=== PATIENT | female | born 1960 | race Caucasian/White ===

== ENCOUNTER → 2017-01-16 | Outpatient (CLI) | payer BC ==
[~2017-01-16] MED LIST: ACID1TAB PO; ASP81TEC PO; BUPROPION; DCCL10CRX; HYDR1TAB75 PO; HYDROCODONE; LOTREL; MTH750T; NIFEDIPINE PO; PHEN16.223 PO; ZEGERID; [UNRECOGNIZED DRUG - OTHER] PO
--- NOTE | 2017-01-16 18:41 | Diagnostic Imaging Report ---
EXAMINATION: Screening mammogram. COMPARISON: 12/21/2015. Digital screening mammography was obtained with CAD and three-dimensional tomosynthesis. FINDINGS: Scattered fibroglandular densities are present. There is no mass or suspicious calcification. IMPRESSION: Stable screening mammogram. No malignancy. ACR BI-RADS Category 1: Negative. Result letter will be mailed to the patient. Note: At least 10% of breast cancer is not imaged by mammography. Dictated on workstation # [id number]
== END ==
LOC: RAD 09:51
PROVIDERS: ATTEND Family Medicine
DX: Z12.31 Encounter for screening mammogram for malignant neoplasm of breast (principal)
CPT/HCPCS: 77067

== ENCOUNTER → 2018-12-25 | Outpatient (CLI) | payer BC ==
--- NOTE | 2018-12-25 12:02 | Diagnostic Imaging Report ---
PROCEDURE: US Thyroid. TECHNIQUE: Multiple real-time grayscale images were obtained of the thyroid in various projections. INDICATION: Thyroid nodules. FINDINGS: Comparison is 05/23/2014. The right lobe of the thyroid measures 4.0 x 2.2 x 1.6 cm. It is normal in size and echogenicity. There is a 5 mm cyst in the right lobe of the thyroid. There is a 5 x 6 mm isoechoic solid nodule with well-defined margins and no internal calcifications in the right lobe of the thyroid. The assessment is TIRADS 3. The left lobe of the thyroid measures 4.2 x 2.1 x 1.4 cm. A few cysts are seen on the left. No solid lesions are present. The isthmus is normal measuring 2 mm. IMPRESSION: 1. TIRADS 3 nodule on the right, recommend followup. TIRADS categories: TIRADS 1: Benign No FNA TIRADS 2: Not Suspicious No FNA TIRADS 3: Mildly Suspicious FNA if > 2.5 cm Follow if > 1.5 cm (At 1, 3 and 5 years from initial scan) TIRADS 4: Moderately Suspicious FNA if > 1.5 cm Follow if > 1 cm (At 1, 2, 3 and 5 years from initial scan) TIRADS 5: Highly Suspicious FNA if > 1 cm Follow if > 0.5 cm (Annually for 5 years from initial scan) Dictated by: Dictated on workstation # [id number]
== END ==
LOC: RAD 09:48
PROVIDERS: ATTEND Nurse Practitioner Family
DX: E04.2 Nontoxic multinodular goiter (principal); E05.90 Thyrotoxicosis, unspecified without thyrotoxic crisis or storm
CPT/HCPCS: 76536

== ENCOUNTER → 2019-01-23 | Outpatient (CLI) | payer BC ==
--- NOTE | 2019-01-25 07:51 | Diagnostic Imaging Report ---
Digital mammogram Bilateral screening with 3-D tomosynthesis and CAD The study was compared to the prior exams of 01/22/2018 and 12/21/2015. At this time there are no current complaints. The current study was also evaluated with a Computer Aided Detection (CAD) system. FINDINGS: There are scattered fibroglandular densities in both breasts which could obscure a lesion. Overall, there does not appear to have been any significant change when compared to the prior exam. No primary or secondary sign of malignancy is noted. IMPRESSION: There is no radiographic evidence for malignancy. ACR BI-RADS Category 1: Negative. Result letter will be mailed to the patient. Note: At least 10% of breast cancer is not imaged by mammography. Dictated by: Dictated on workstation # [id number]
== END ==
LOC: RAD 09:35
PROVIDERS: ATTEND Family Medicine
DX: Z12.31 Encounter for screening mammogram for malignant neoplasm of breast (principal)
CPT/HCPCS: 77067

== ENCOUNTER 2019-05-25 11:05 | Inpatient (IN) | payer BC ==
[2019-05-25] VITALS (9 sets, daily range): BP systolic 86–109; BP diastolic 25–67
[~2019-05-25] VITALS: Ht 160 cm; Wt 49.5 kg
[2019-05-25] MEDS ORDERED: D5 NS 1000 ML IV SOLUTION 1,000 ML IV ONE (11:20)
[2019-05-25] MEDS ORDERED: NS IV 1000 ML 1,000 ML IV SCH ×2 (11:25→14:17)
[2019-05-25] MEDS ORDERED: CEFEPIME INJECTION 1,000 MG in WATER (STERILE) FOR INJECTION 10 ML IV ONE (11:30)
[2019-05-25] MEDS ORDERED: metroNIDAZOLE 500MG/100ML IVPB 100 ML IV ONE (11:30)
[2019-05-25] MEDS ORDERED: ONDANSETRON 4 MG/2 ML (SDV) Z0FRAN IV PRN ×2 (11:30→15:45)
[2019-05-25] MEDS ORDERED: DEXTROSE 50% 50 ML (IMS) SYR IV ONE (11:30)
--- NOTE | 2019-05-25 11:36 | ED GI ---
General Chief Complaint: General Problems/Pain Stated Complaint: VOMITING / DIARRHEA Nursing Triage Note: AMB TO ED PER EMS HAS BEEN SICK SINCE MONDAY WITH DIARRHEA ON ADMIT LETHARGIC ON ADMIT Sepsis Screen: No Definite Risk Source of Information: Patient, Spouse Exam Limitations: No Limitations History of Present Illness Date Seen by Provider: May 25, 2019 Time Seen by Provider: 11:14 Initial Comments Patient presents ER by EMS from home with spouse and chief complaint for 2 days she's had diarrhea, and dehydration. She has diabetes. She was very weak and had a fall yesterday striking her left arm but she says it does not hurt her anymore. She did not strike her head nor lose consciousness. She had an occasional cough but no fevers or chills. No dysuria. She's had her gallbladder out, and tubal ligation. Allergies and Home Medications Allergies Coded Allergies: No Known Drug Allergies (Verified , 04/05/07) Home Medications Acidophilus/Bulgaricus 1 Tab.chew Tab.chew, 1 TAB.CHEW PO BID, (Reported) Aspirin 81 Mg Tabec, 81 MG PO DAILY, (Reported) Hydrocodone Bit/Acetaminophen 1 Each Tablet, 1 EACH PO Q4HR PRN, (Reported) Phenobarb/Hyoscy/Atropine/Scop 16.2 Mg Tablet, 2 TAB PO BID, (Reported) [Methacarbamal] , 1,500 MG PO BID, (Reported) [Nifedipine] , 60 MG PO DAILY, (Reported) Patient Home Medication List Home Medication List Reviewed: Yes Review of Systems Review of Systems Constitutional: No chills, No diaphoresis; malaise, weakness EENTM: No Blurred Vision, No Double Vision Respiratory: Denies Cough, Denies Shortness of Air Cardiovascular: Denies Chest Pain, Denies Lightheadedness Gastrointestinal: See HPI; Denies Abdomen Distended, Denies Abdominal Pain, Denies Constipated; Diarrhea; Denies Nausea; Poor Appetite, Poor Fluid Intake; Denies Vomiting Genitourinary: Denies Burning, Denies Discharge Musculoskeletal: No back pain, No joint pain Skin: No pruritus, No rash Psychiatric/Neurological: Denies Headache, Denies Numbness All Other Systems Reviewed Negative Unless Noted: Yes Past Darzedc-Mxhmis-Wpxori Hx Patient Social History Alcohol Use: Denies Use Recreational Drug Use: No Smoking Status: Never a Smoker Recent Foreign Travel: No Contact w/Someone Who Travel: No Recent Infectious Disease Expo: No Past Medical History Reproductive Disorders: Yes (6.2 LB.MASS ON RIGHT OVARY-HYSTERECTOMY) Physical Exam Vital Signs Vital Signs - First Documented 05/25/19 11:11 Temp 35.2 Pulse 87 Resp 16 B/P (MAP) 134/79 (97) Pulse Ox 0 Capillary Refill : Less Than 3 Seconds Height/Weight/BMI Height: '" Weight: lbs. oz. kg; 19.00 BMI Method: General Appearance: moderate distress, thin HEENT: PERRL/EOMI, normal ENT inspection, TMs normal; No pharynx normal (oropharynx is very dry) Neck: full range of motion, supple, normal inspection Respiratory: lungs clear, normal breath sounds, no respiratory distress, no accessory muscle use Cardiovascular: normal peripheral pulses, regular rate, rhythm, no edema Peripheral Pulses: 2+ Radial Pulses (R), 2+ Radial Pulses (L) Gastrointestinal: normal bowel sounds (active), non tender, soft, no organomegaly Neurologic/Psychiatric: alert, normal mood/affect, oriented x 3, other (GCS 14) Skin: normal color, warm/dry Focused Exam Lactate Level 05/25/19 12:06: Lactic Acid Level 5.81*H Lactic Acid Level Laboratory Tests Test 05/25/19 12:06 Lactic Acid Level 5.81 MMOL/L (0.50-2.00) *H Procedures/Interventions Lumen: triple Central Line Procedure: betadine prep (and chlorhexidine), sterile drapes applied, sterile dressing applied Position: internal jugular (R) Anesthesia: Lidocaine Volume Anesthetic (ccs): 3 Complications: none Post Position: sutured, good blood return, position confirmed w/ CXR Patient was positioned in Trendelenburg. Risks, benefits and alternatives were discussed. Patient and acknowledged and accepted and signed consent. We had a good plump IJ when she isn't Trendelenburg on the right side so we draped her out in the usual fashion. Infiltrated lidocaine and then put the introducer needle into the right IJ on first attempt. The guidewire was easily passed on first attempt. Nabeel in the skin was made and the needle was removed. Dilator was introduced and removed. We then flushed and placed the triple lumen catheter w hich easily withdrew and flushed. We put it at about 12 cm. We stitched in place and there was a bio gel on the dressing which was then placed all using the usual sterile fashion. Progress/Results/Core Measures Results/Orders Lab Results Laboratory Tests Test 05/25/19 11:12 05/25/19 12:06 05/25/19 12:42 05/25/19 13:33 Range/Units Glucometer 45 *L 46 *L 70-110 MG/DL White Blood Count 3.2 L 4.3-11.0 10^3/uL Red Blood Count 4.59 4.35-5.85 10^6/uL Hemoglobin 14.3 11.5-16.0 G/DL Hematocrit 42 35-52 % Mean Corpuscular Volume 91 80-99 FL Mean Corpuscular Hemoglobin 31 25-34 PG Mean Corpuscular Hemoglobin Concent 34 32-36 G/DL Red Cell Distribution Width 13.0 10.0-14.5 % Platelet Count 208 130-400 10^3/uL Mean Platelet Volume 10.0 7.4-10.4 FL Neutrophils (%) (Auto) 84 H 42-75 % Lymphocytes (%) (Auto) 6 L 12-44 % Monocytes (%) (Auto) 3 0-12 % Eosinophils (%) (Auto) 7 0-10 % Basophils (%) (Auto) 1 0-10 % Neutrophils # (Auto) 2.7 1.8-7.8 X 10^3 Lymphocytes # (Auto) 0.2 L 1.0-4.0 X 10^3 Monocytes # (Auto) 0.1 0.0-1.0 X 10^3 Eosinophils # (Auto) 0.2 0.0-0.3 10^3/uL Basophils # (Auto) 0.0 0.0-0.1 10^3/uL Neutrophils % (Manual) 53 % Lymphocytes % (Manual) 8 % Monocytes % (Manual) 31 % Eosinophils % (Manual) 1 % Band Neutrophils 7 % Blood Morphology Comment NORMAL Lactic Acid Level 5.81 *H 0.50-2.00 MMOL/L Prothrombin Time 15.2 H 12.2-14.7 SEC INR Comment 1.2 0.8-1.4 Activated Partial Thromboplast Time 33 24-35 SEC Sodium Level 136 135-145 MMOL/L Potassium Level 3.7 3.6-5.0 MMOL/L Chloride Level 100 98-107 MMOL/L Carbon Dioxide Level 18 L 21-32 MMOL/L Anion Gap 18 H 5-14 MMOL/L Blood Urea Nitrogen 60 H 7-18 MG/DL Creatinine 2.74 H 0.60-1.30 MG/DL Estimat Glomerular Filtration Rate 18 BUN/Creatinine Ratio 22 Glucose Level 92 70-105 MG/DL Calcium Level 7.6 L 8.5-10.1 MG/DL Corrected Calcium 8.6 8.5-10.1 MG/DL Total Bilirubin 0.5 0.1-1.0 MG/DL Aspartate Amino Transf (AST/SGOT) 56 H 5-34 U/L Alanine Aminotransferase (ALT/SGPT) 33 0-55 U/L Alkaline Phosphatase 47 40-136 U/L Total Protein 5.2 L 6.4-8.2 GM/DL Albumin 2.7 L 3.2-4.5 GM/DL My Orders Orders - GILDA ALEXIS D50w (Emergency) Syringe (Dextrose 50% 5 (05/25/19 11:30) Accucheck Stat ONCE (05/25/19 11:19) Ed Iv/Invasive Line Start (05/25/19 11:20) D5 Ns 1000 Ml Iv Solution (Dextrose 5%/0 (05/25/19 11:20) Cbc With Automated Diff (05/25/19 11:25) Comprehensive Metabolic Panel (05/25/19 11:25) Blood Culture (05/25/19 11:25) Sputum Culture (05/25/19 11:25) Urinalysis (05/25/19 11:25) Urine Culture (05/25/19 11:25) Protime With Inr (05/25/19 11:25) Partial Thromboplastin Time (05/25/19 11:25) Chest 1 View, Ap/Pa Only (05/25/19 11:25) Ed Iv/Invasive Line Start (05/25/19 11:25) Ed Iv/Invasive Line Start (05/25/19 11:25) Vital Signs Adult Sepsis Patie Q15M (05/25/19 11:25) Ondansetron Injection (Zofran Injectio (05/25/19 11:30) O2 (05/25/19 11:25) Remove Rings In Anticipation O (05/25/19 11:25) Lactic Acid Analyzer (05/25/19 11:25) Ns Iv 1000 Ml (Sodium Chloride 0.9%) (05/25/19 11:25) Metronidazole 500mg/100ml Ivpb (Flagyl 5 (05/25/19 11:30) Cefepime Injection (Maxipime Injection) (05/25/19 11:30) Ed Iv/Invasive Line Start (05/25/19 11:25) Ed Iv/Invasive Line Start (05/25/19 12:02) Ns Iv 500 Ml (Sodium Chloride 0.9%) (05/25/19 12:02) Manual Differential (05/25/19 12:06) Chest 1 View, Ap/Pa Only (05/25/19 12:35) Loperamide Tablet (Imodium Tablet) (05/25/19 12:45) Norepinephrine (Levophed) (05/25/19 13:15) Influenza A And B Antigens (05/25/19 13:41) Accucheck Stat ONCE (05/25/19 13:48) Medications Given in ED Current Medications Medications Dose Ordered Sig/Lidia Route Start Time Stop Time Status Last Admin Dose Admin Cefepime HCl 1000 mg/Sterile Water 10 ml @ 200 mls/hr ONCE ONCE IV 05/25/19 11:30 05/25/19 11:32 DC 05/25/19 12:59 200 MLS/HR Dextrose/Sodium Chloride 1,000 ml @ 100 mls/hr Q10H ONCE IV 05/25/19 11:20 05/25/19 21:19 05/25/19 11:23 100 MLS/HR Loperamide HCl 4 mg ONCE ONCE PO 05/25/19 12:45 05/25/19 12:46 DC 05/25/19 12:55 4 MG Metronidazole 100 ml @ 100 mls/hr ONCE ONCE IV 05/25/19 11:30 05/25/19 12:29 DC 05/25/19 12:59 100 MLS/HR Ondansetron HCl 4 mg PRN PRN IV 05/25/19 11:30 05/25/19 12:59 DC 05/25/19 12:53 4 MG Sodium Chloride 500 ml @ 0 mls/hr Q0M ONCE IV 05/25/19 12:02 05/25/19 12:04 DC 05/25/19 12:57 500 MLS/HR Vital Signs/I&O 05/25/19 11:11 Temp 35.2 Pulse 87 Resp 16 B/P (MAP) 134/79 (97) Pulse Ox 0 Blood Pressure Mean: 97 Progress Progress Note : Time: 11:35 Progress Note Blood sugars in the 40s so we started a D5 at 100 cc an hour throughout 24-gauge in her right forearm. She has very poor vascular access. We'll attempt to get an EJ in her neck. Diagnostic Imaging Plain Films/CT/US/NM/MRI: chest (1v) Comments [facility]. [place], [place] NAME: TAMANNA PLATT [facility] REC#: [id number] PT STATUS: REG ER : 1960 PHYSICIAN: GILDA ALEXIS MD ADMIT DATE: 05/25/19/ER Draft Date of Exam:05/25/19 CHEST 1 VIEW, AP/PA ONLY INDICATION: Shortness of breath. TIME OF EXAM: 12:04 PM Correlation is made with prior chest 07/07/2011. FINDINGS: Heart is mildly enlarged. There are infiltrates bilateral upper lobes as well as bilateral lower lobes, greatest in the right lower lobe. Features are most suggestive of pneumonia. No effusion or pneumothorax is seen. IMPRESSION: Bilateral pulmonary infiltrates suggestive of pneumonia. Dictated on workstation # [id number] Dict: 05/25/19 1208 Trans: 05/25/19 1211 [id number] Interpreted by: JULIANA CAMERON MD Electronically signed by: Reviewed: Reviewed by Me Diagonstic Imaging: Xray Plain Films/CT/US/NM/MRI: chest (v) Comments New interval central catheter not crossing the midline terminating at the level of the right atria in the superior vena cava. No pneumothorax or other new acute processes. NAME: TAMANNA PLATT MED REC#: [id number] PT STATUS: REG ER : 1960 PHYSICIAN: GILDA ALEXIS MD ADMIT DATE: 05/25/19/ER Draft Date of Exam:05/25/19 CHEST 1 VIEW, AP/PA ONLY INDICATION: Central line placement. TIME OF EXAM: 12:50 PM Correlation is made with chest radiograph earlier same day. FINDINGS: Right IJ line has tip overlying the SVC. There is no pneumothorax. Bilateral pulmonary infiltrates are again noted. There is no effusion. IMPRESSION: Satisfactory central line placement. No pneumothorax is detected. Dictated on workstation # [id number] Dict: 05/25/19 1255 Trans: 05/25/19 1257 [id number] Interpreted by: JULIANA CAMERON MD Electronically signed by: Reviewed: Reviewed by Me Departure Communication (Admissions) Time/Spoke to Admitting Phy: 13:[address] Mckay and he agrees to admit the patient to the ICU. He agrees with antibiotics fluids and Levophed. Impression Primary Impression: Septic shock Additional Impressions: Pneumonia Qualified Codes: J18.9 - Pneumonia, unspecified organism Gastroenteritis and colitis, viral Hypoglycemia associated with type 2 diabetes mellitus Disposition: ADMITTED INPATIENT Condition: Critical Admissions Decision to Admit Reason: Admit from ER (General) Decision to Admit/Date: May 25, 2019 Time/Decision to Admit Time: 12:00 Departure-Patient Inst. Referrals: PIETRO TURK DO (PCP/Family) Primary Care Physician GILDA ALEXIS May 25, 2019 11:36
[2019-05-25] MEDS ORDERED: NS IV 500 ML 500 ML IV ONE (12:02)
--- NOTE | 2019-05-25 12:11 | Diagnostic Imaging Report ---
INDICATION: Shortness of breath. TIME OF EXAM: 12:04 PM Correlation is made with prior chest 07/07/2011. FINDINGS: Heart is mildly enlarged. There are infiltrates bilateral upper lobes as well as bilateral lower lobes, greatest in the right lower lobe. Features are most suggestive of pneumonia. No effusion or pneumothorax is seen. IMPRESSION: Bilateral pulmonary infiltrates suggestive of pneumonia. Dictated by: Dictated on workstation # [id number]
[2019-05-25 12:19] LABS: BASOPHILS % (AUTO) 1 % (0-10); EOSINOPHILS # (AUTO) 0.2 10^3/uL (0.0-0.3); EOSINOPHILS % (AUTO) 7 % (0-10); HEMATOCRIT 42 % (35-52); HEMOGLOBIN 14.3 G/DL (11.5-16.0); LYMPHOCYTES # (AUTO) 0.2 X 10^3 (1.0-4.0); LYMPHOCYTES % (AUTO) 6 % (12-44); MEAN CORPUSCULAR HEMOGLOBIN 31 PG (25-34); MEAN CORPUSCULAR HGB CONC 34 G/DL (32-36); MEAN CORPUSCULAR VOLUME 91 FL (80-99); MONOCYTES # (AUTO) 0.1 X 10^3 (0.0-1.0); MONOCYTES % (AUTO) 3 % (0-12); NEUTROPHILS # (AUTO) 2.7 X 10^3 (1.8-7.8); NEUTROPHILS % (AUTO) 84 % (42-75); PLATELET COUNT 208 10^3/uL (130-400); WHITE BLOOD COUNT 3.2 10^3/uL (4.3-11.0)
[2019-05-25] MEDS ORDERED: LOPERAMIDE 2 MG (IMODIUM) TABLET PO ONE (12:45)
--- NOTE | 2019-05-25 12:58 | Diagnostic Imaging Report ---
INDICATION: Central line placement. TIME OF EXAM: 12:50 PM Correlation is made with chest radiograph earlier same day. FINDINGS: Right IJ line has tip overlying the SVC. There is no pneumothorax. Bilateral pulmonary infiltrates are again noted. There is no effusion. IMPRESSION: Satisfactory central line placement. No pneumothorax is detected. Dictated by: Dictated on workstation # [id number]
[2019-05-25 13:09] LABS: ALBUMIN 2.7 GM/DL (3.2-4.5); BILIRUBIN,TOTAL 0.5 MG/DL (0.1-1.0); CALCIUM 7.6 MG/DL (8.5-10.1); CREATININE SERUM 2.74 MG/DL (0.60-1.30); POTASSIUM 3.7 MMOL/L (3.6-5.0); TOTAL PROTEIN 5.2 GM/DL (6.4-8.2)
[2019-05-25 13:11] LABS: INR 1.2 (0.8-1.4); PROTHROMBIN TIME PATIENT 15.2 SEC (12.2-14.7)
[2019-05-25] MEDS ORDERED: NOREPINEPHRINE 4 MG in NS (IVPB) 250 ML IV SCH (13:15)
[2019-05-25 13:29] LABS: BAND NEUTROPHILS 7 %; EOSINOPHILS % (MANUAL) 1 %; LYMPHOCYTES % (MANUAL) 8 %; MONOCYTES % (MANUAL) 31 %; NEUTROPHILS % (MANUAL) 53 %; RBC MORPH NORMAL
[2019-05-25] MEDS ORDERED: VANCOMYCIN INJECTION 0.1 MG in NS (IVPB) 250 ML IV SCH (14:00)
[2019-05-25] MEDS ORDERED: VANCOMYCIN 1 GM/NS 250 ML IVPB IV NR ×2 (14:08)
[2019-05-25] MEDS ORDERED: AZITHROMYCIN INJECTION 500 MG in NS (IVPB) 250 ML IV SCH (14:45)
[2019-05-25] MEDS ORDERED: cefTRIAXone FOR IV USE 1,000 MG in WATER (STERILE) FOR INJECTION 10 ML IV SCH (14:45)
--- NOTE | 2019-05-25 15:03 | History & Physical-Hospitalist ---
History of Present Illness HPI/Chief Complaint this is a 59-year-old white female who began becoming ill with an upper respiratory tract infection on 05 14 2019. At that time she had a cough and a fever up to 103. she never really got over that and has progressed with increased weakness shortness of breath and cough. In addition she had developed some diarrhea and some nausea. The patient presents in septic shock with bilateral pulmonary infiltrates consistent with pneumonia and acute renal failure. Source: patient Exam Limitations: no limitations Date Seen 05/25/19 Time Seen by a Provider: 14:30 Attending Physician Dayami Lowe DO Referring Physician Date of Admission May 25, 2019 at 14:00 Home Medications & Allergies Home Medications Reviewed patient Home Medication Reconciliation performed by pharmacy medication reconciliations research technician and/or nursing. Patients Allergies have been reviewed. Allergies Allergies Coded Allergies No Known Drug Allergies (Qyoyvleb90/8/07) Past Oojopzq-Utmdwc-Lvuwzh Hx Past Med/Social Hx: Reviewed Nursing Past Med/Soc Hx Patient Social History Marrital Status: Employed/Student: retired Alcohol Use: Denies Use Recreational Drug Use: No Smoking Status: Current Everyday Smoker Recent Foreign Travel: No Contact w/other who traveled: No Recent Hopitalizations: Yes Recent Infectious Disease Expo: No Past Medical History Surgeries: Gallbladder, Hysterectomy, Oophorectomy Reproductive: Yes (6.2 LB.MASS ON RIGHT OVARY-HYSTERECTOMY) Sexually Transmitted Disease: No Endocrine: Hypothyroidsim, Diabetes, Non-Insulin dep History of Blood Disorders: No Review of Systems Constitutional: see HPI Respiratory: cough, dyspnea on exertion Cardiovascular: no symptoms reported Gastrointestinal: diarrhea, nausea Genitourinary: no symptoms reported Musculoskeletal: no symptoms reported Skin: no symptoms reported, other (Celine) Psychiatric/Neurological: No Symptoms Reported Physical Exam Physical Exam Vital Signs Vital Signs - First Documented 05/25/19 05/25/19 11:11 14:44 Temp 35.2 Pulse 87 Resp 16 B/P (MAP) 134/79 (97) Pulse Ox 0 O2 Delivery Nasal Cannula O2 Flow Rate 2.00 Capillary Refill : Less Than 3 Seconds Height, Weight, BMI Height: '" Weight: lbs. oz. kg; 19.00 BMI Method: General Appearance: Mild Distress, Thin HEENT: TMs Normal, Normal ENT Inspection, Other (oral mucosa extremely dry) Neck: Full Range of Motion, Normal Inspection, Non Tender, Supple Respiratory: No Accessory Muscle Use, No Respiratory Distress, Crackles, Rales Cardiovascular: Regular Rate, Rhythm, No Gallop, No Murmur, Normal Peripheral Pulses Gastrointestinal: Normal Bowel Sounds, No Organomegaly, No Pulsatile Mass, Non Tender, Soft Extremity: No Calf Tenderness, Slow Capillary Refill Neurologic/Psychiatric: Alert, Oriented x3, No Motor/Sensory Deficits, Normal Mood/Affect Skin: Warm/Dry Results Results/Procedures Labs Laboratory Tests 05/25/19 12:06 05/25/19 12:42 05/25/19 18:55 Patient resulted labs reviewed. Assessment/Plan Admission Diagnosis septic shock Community acquired pneumonia Acute renal failure secondary to dehydration and 1 Respiratory insufficiency secondary to pneumonia Tobaccoism gastroenteritis of uncertain etiology persistant hypoglycemia Plan to admit to the ICU with aggressive fluid hydration, pressors as needed, patient has already received vancomycin and Flagyl and meropenem, will add zithromax-prognosis is guarded Admission Status: Inpatient Order (span 2 midnights) Reason for Inpatient Admission: patient is critically ill with multiple comorbidities Diagnosis/Problems Diagnosis/Problems (1) Septic shock Status: Acute (2) Pneumonia Status: Acute Qualifiers: Pneumonia type: due to unspecified organism Laterality: bilateral Lung location: unspecified part of lung Qualified Codes: J18.9 - Pneumonia, unspecified organism (3) Gastroenteritis and colitis, viral Status: Acute (4) Hypoglycemia associated with type 2 diabetes mellitus Status: Acute Copy Copies To 1: DAYAMI TURK KATHLEEN M MD May 25, 2019 15:03
[2019-05-25 15:07] LABS: BILIRUBIN,URINE NEGATIVE (NEGATIVE); CLARITY,URINE CLOUDY; COLOR,URINE ORANGE; GLUCOSE, URINE (UA) NEGATIVE (NEGATIVE); KETONES,URINE NEGATIVE (NEGATIVE); LEUKOCYTE ESTERASE ,URINE NEGATIVE (NEGATIVE); NITRITE,URINE NEGATIVE (NEGATIVE); PROTEIN,URINE 1+ (NEGATIVE)
[2019-05-25 15:21] LABS: BACTERIA,URINE MODERATE /HPF; RBC,URINE 0-2 /HPF
[2019-05-25] MEDS ORDERED: fentaNYL INJECTION 100 MCG/2 ML AMP IV PRN (15:45)
[2019-05-25] MEDS ORDERED: ACETAMINOPHEN 500 MG TAB (TYLENOL) PO PRN (15:45)
[2019-05-25] MEDS ORDERED: PROMETHAZINE INJ 25 MG/ML (PHENERGAN) AMP IV PRN (15:45)
[2019-05-25] MEDS ORDERED: inSUlin ASPART (NovoLOG) 1 UNIT/0.01 ML (CHARGE PER UNIT) SC SCH (16:00)
[2019-05-25] MEDS: NS IV 1000 ML 1,000 ML IV SCH ×3 (16:32→20:01)
[2019-05-25] MEDS ORDERED: ENOXAPARIN 40 MG/0.4 ML (LOVENOX) SYR SC SCH ×2 (18:45→21:00)
--- NOTE | 2019-05-25 18:45 | Diagnostic Imaging Report ---
INDICATION: Hypoxia COMPARISON: 05/25/2019 at 12:50 PM FINDINGS: Single view of the chest demonstrates slightly increased infiltrate in the left base. Otherwise, additional bilateral infiltrates are stable. There is no pneumothorax. Trace effusion is seen in the right costophrenic angle. The heart is stable in size. Right IJ catheter is in good position. IMPRESSION: Increasing infiltrate left base, otherwise no change identified. Dictated by: Dictated on workstation # [id number]
[2019-05-25 19:00] LABS: ABG BASE EXCESS -9.9 MMOL/L (-2.5-2.5); ABG OXYGEN SATURATION 71 % (94-100); ABG PCO2 45 MMHG (35-45); ABG PO2 48 MMHG (79-93); ABG TCO2 18.2 MMOL/L (21.0-31.0)
[2019-05-25 19:03] LABS: ABG PH 7.19 (7.37-7.43)
[2019-05-25 19:04] LABS: INSPIRED O2 6 L; PATIENT TEMP 36.7; VENTILATOR NO
[2019-05-25] MEDS ORDERED: ENOXAPARIN 30 MG/0.3 ML (LOVENOX) SYR ONE (19:06)
[2019-05-25 19:07] LABS: BASOPHILS % (AUTO) 1 % (0-10); EOSINOPHILS # (AUTO) 0.1 10^3/uL (0.0-0.3); EOSINOPHILS % (AUTO) 3 % (0-10); HEMATOCRIT 34 % (35-52); HEMOGLOBIN 11.8 G/DL (11.5-16.0); LYMPHOCYTES # (AUTO) 0.2 X 10^3 (1.0-4.0); LYMPHOCYTES % (AUTO) 4 % (12-44); MEAN CORPUSCULAR HEMOGLOBIN 31 PG (25-34); MEAN CORPUSCULAR HGB CONC 35 G/DL (32-36); MEAN CORPUSCULAR VOLUME 91 FL (80-99); MEAN PLATELET VOLUME 9.5 FL (7.4-10.4); MONOCYTES % (AUTO) 1 % (0-12); NEUTROPHILS # (AUTO) 3.5 X 10^3 (1.8-7.8); NEUTROPHILS % (AUTO) 91 % (42-75); PLATELET COUNT 246 10^3/uL (130-400); RED CELL DISTRIBUTION WIDTH 13.1 % (10.0-14.5); WHITE BLOOD COUNT 3.9 10^3/uL (4.3-11.0)
[2019-05-25 19:25] LABS: CREATININE SERUM 2.15 MG/DL (0.60-1.30); PHOSPHORUS 5.4 MG/DL (2.3-4.7)
--- NOTE | 2019-05-25 19:26 | Discharge Summary ---
Discharge Summary Hospital Course Was the Problem List Reviewed?: Yes Problems/Dx: (1) Respiratory failure requiring intubation Status: Acute (2) Septic shock Status: Acute (3) Pneumonia Status: Acute Qualifiers: Qualified Codes: J18.9 - Pneumonia, unspecified organism (4) Gastroenteritis and colitis, viral Status: Acute (5) Hypoglycemia associated with type 2 diabetes mellitus Status: Acute Hospital Course Date of Admission: May 25, 2019 at 14:00 Admission Diagnosis : Family Physician/Provider: Dayami Garcia DO Date of Discharge: 05/25/19 Discharge Diagnosis: [ acute respiratory failure secondary to pneumonia septic shock acute renal failure hypoglycemia] Hospital Course: PT WAS ADMITTED WITH SEPTIC SHOCK. HAD MEROPENEM, FLAGYL, AND VANCOMYCIN IN ED, AGGRESSIVE FLUID HYDRATION WITH 3.5 LITERS AND LEVOPHED- BUT HAS HAD PROGRESSIVE HYPOXIA AND INFILTRATES.HAS ALSO HAD AZITHROMYCIN 500 MG IV . [facility] FOR [facility]ICAL CARE, [facility]. PT WILL BE INTUBATED BEFORE TRANSFER BECAUSE OF RESPIRATORY ACIDOSIS AND HYPOXIA. ]PT WILL BE TRANSFERRED BY AMBULANCE BECAUSE OF WEATHER CONDITIONS. Labs and Pending Lab Test: Laboratory Tests 05/25/19 11:12: Glucometer 45*L 05/25/19 12:06: White Blood Count 3.2L, Red Blood Count 4.59, Hemoglobin 14.3, Hematocrit 42, Mean Corpuscular Volume 91, Mean Corpuscular Hemoglobin 31, Mean Corpuscular Hemoglobin Concent 34, Red Cell Distribution Width 13.0, Platelet Count 208, Mean Platelet Volume 10.0, Neutrophils (%) (Auto) 84H, Lymphocytes (%) (Auto) 6L , Monocytes (%) (Auto) 3, Eosinophils (%) (Auto) 7, Basophils (%) (Auto) 1, Neutrophils # (Auto) 2.7, Lymphocytes # (Auto) 0.2L, Monocytes # (Auto) 0.1, Eosinophils # (Auto) 0.2, Basophils # (Auto) 0.0, Neutrophils % (Manual) 53, Lymphocytes % (Manual) 8, Monocytes % (Manual) 31, Eosinophils % (Manual) 1, Band Neutrophils 7, Blood Morphology Comment NORMAL, Lactic Acid Level 5.81*H 05/25/19 12:42: Prothrombin Time 15.2H, INR Comment 1.2, Activated Partial Thromboplast Time 33, Sodium Level 136, Potassium Level 3.7, Chloride Level 100, Carbon Dioxide Level 18L, Anion Gap 18H, Blood Urea Nitrogen 60H, Creatinine 2.74H, Estimat Glomerular Filtration Rate 18, BUN/Creatinine Ratio 22, Glucose Level 92, Calcium Level 7.6L, Corrected Calcium 8.6, Total Bilirubin 0.5, Aspartate Amino Transf (AST/SGOT) 56H, Alanine Aminotransferase (ALT/SGPT) 33, Alkaline Phosphatase 47, Total Protein 5.2L, Albumin 2.7L, Procalcitonin 203.13H 05/25/19 13:33: Glucometer 46*L 05/25/19 14:05: Lactic Acid Level 2.82*H 05/25/19 14:19: Glucometer 66L 05/25/19 14:55: Urine Color ORANGE, Urine Clarity CLOUDY, Urine pH 5.0, Urine Specific [place] >=1.030, Urine Protein 1+H, Urine Glucose (UA) NEGATIVE, Urine Ketones NEGATIVE, Urine Nitrite NEGATIVE, Urine Bilirubin NEGATIVE, Urine Urobilinogen 0.2, Urine Leukocyte Esterase NEGATIVE, Urine RBC (Auto) 1+H, Urine RBC 0-2, Urine WBC 2-5, Urine Squamous Epithelial Cells 2-5, Urine Crystals NONE, Urine Bacteria MODERATEH, Urine Casts PRESENT, Urine Hyaline Casts 5-10H, Urine Mucus SMALLH, Urine Culture Indicated CULTURE PENDING, Urine Legionella pneumophilia Ag [Pending] 05/25/19 16:05: Lactic Acid Level 2.79*H 05/25/19 16:35: Glucometer 64L 05/25/19 18:10: Lactic Acid Level 2.86*H 05/25/19 18:53: Glucometer 108 05/25/19 18:55: White Blood Count 3.9L, Red Blood Count 3.76L, Hemoglobin 11.8, Hematocrit 34L, Mean Corpuscular Volume 91, Mean Corpuscular Hemoglobin 31, Mean Corpuscular Hemoglobin Concent 35, Red Cell Distribution Width 13.1, Platelet Count 246, Mean Platelet Volume 9.5, Neutrophils (%) (Auto) 91H, Lymphocytes (%) (Auto) 4L, Monocytes (%) (Auto) 1, Eosinophils (%) (Auto) 3, Basophils (%) (Auto) 1, Neutrophils # (Auto) 3.5, Lymphocytes # (Auto) 0.2L, Monocytes # (Auto) 0.0, Eosinophils # (Auto) 0.1, Basophils # (Auto) 0.0, Blood Gas Puncture Site LT RAD, Blood Gas Patient Temperature 36.7, Arterial Blood pH 7.19*L, Arterial Blood Partial Pressure CO2 45, Arterial Blood Partial Pressure O2 48L, Arterial Blood HCO3 17*L, Arterial Blood Total CO2 18.2L, Arterial Blood Oxygen Satura tion 71L, Arterial Blood Base Excess -9.9L, Taiwo Test NA, Blood Gas Ventilator Setting NO, Blood Gas Inspired Oxygen 6 L, Sodium Level [Pending], Potassium Level [Pending], Chloride Level [Pending], Carbon Dioxide Level [Pending], Anion Gap [Pending], Blood Urea Nitrogen [Pending], Creatinine [Pending], BUN/Creatinine Ratio [Pending], Glucose Level [Pending], Calcium Level [Pending], Phosphorus Level [Pending] Microbiology 05/25/19 Influenza Types A,B Antigen (MADIE) - Final, Complete Home Meds Active Reported [Nifedipine] 60 Mg PO DAILY [Methacarbamal] 1,500 Mg PO BID Hydrocodone-Apap 7.5-650 Tab (Acetaminophen/Hydrocodone Bitart) 1 Each Tablet 1 Each PO Q4HR PRN Aspirin Ec 81 Mg (Aspirin) 81 Mg Tabec 81 Mg PO DAILY Belladonna/Phenobarb Tablet (Phenobarb/Hyoscy/Atropine/Scop) 16.2 Mg Tablet 2 Tab PO BID Lactinex Tab (Acidophilus) 1 Tab.chew Tab.chew 1 Tab.chew PO BID [Hydrocodone] Assessment/Pt Instructions transfer of care to Dr. He, [facility]. Discharge Planning: >30 minutes discharge planning Discharge Instructions Discharge Diet: Other Diet (NPO) Activity as Tolerated: No Pneumonia Vaccine Order Indica: Yes Discharge Physical Examination Vital Signs Vital Signs Date Time Temp Pulse Resp B/P (MAP) Pulse Ox O2 Delivery O2 Flow Rate FiO2 05/25/19 18:00 92 16 86/53 (64) 97 Nasal Cannula 6.00 05/25/19 11:11 35.2 General Appearance: Other (intubated) Allergies: Coded Allergies: No Known Drug Allergies (Verified , 04/05/07) Discharge Summary Date of Admission May 25, 2019 at 14:00 Date of Discharge Admission Diagnosis septic shock Community acquired pneumonia Acute renal failure secondary to dehydration and 1 Respiratory insufficiency secondary to pneumonia Tobaccoism gastroenteritis of uncertain etiology persistant hypoglycemia Plan to admit to the ICU with aggressive fluid hydration, pressors as needed, patient is already received vancomycin and Flagyl and meropene-prognosis is guarded Discharge Diagnosis (1) Septic shock Status: Acute (2) Pneumonia Status: Acute Qualifiers: Qualified Codes: J18.9 - Pneumonia, unspecified organism (3) Gastroenteritis and colitis, viral Status: Acute (4) Hypoglycemia associated with type 2 diabetes mellitus Status: Acute Clinical Quality Measures DVT/VTE Risk/Contraindication: Risk Factor Score Per Nursin RFS Level Per Nursing on Admit: 4+=Very High HANNA ALEXANDER MD May 25, 2019 19:25
--- NOTE | 2019-05-25 20:06 | Anesthesia-Procedure Note ---
Procedures/Interventions Procedure Start/Stop/Diagnosis Date of Procedure: May 25, 2019 Start Time: 20:00 Stop Time: 20:05 Intubation RSI: Yes 100% pre-Ox, [id number]: Yes Intubation Method: orotracheal Videoscope used: Yes Grade View: 1 Medications: Etomidate (30mg), Succinylcholine (80), Versed (5) Mask Ventilation: positive Positive End Tide CO2: Yes Breath Sounds after Intubation: bilateral-equal ETT Securred @ (cm): 20 Intubated with ease: Yes Intubation Complications: no complications MELANI CAMPOS CRNA May 25, 2019 20:06
[2019-05-25] MEDS ORDERED: RT-ALBUTEROL/IPRATROPIUM 3 ML (DUONEB) VIAL ONE (20:09)
--- NOTE | 2019-05-25 20:26 | Diagnostic Imaging Report ---
INDICATION: Intubated COMPARISON: 05/25/2019 FINDINGS: Single view of the chest demonstrates ET tube in the mid to distal trachea. NG tube is well positioned in the stomach. Infiltrates are again seen bilaterally. There is no pneumothorax. The right IJ catheter stable. IMPRESSION: Well-positioned support lines. No pneumothorax. Dictated by: Dictated on workstation # [id number]
[2019-05-25] MEDS ORDERED: PROPOFOL DRIP (ICU) 100 ML IV SCH (20:30)
[2019-05-25] MEDS ORDERED: RT-ALBUTEROL/IPRATROPIUM 3 ML (DUONEB) VIAL INH PRN ×2 (20:45→21:00)
[2019-05-25 21:08] LABS: ABG BASE EXCESS -12.3 MMOL/L (-2.5-2.5); ABG OXYGEN SATURATION 95 % (94-100); ABG PCO2 54 MMHG (35-45); ABG PO2 97 MMHG (79-93); ABG TCO2 17.4 MMOL/L (21.0-31.0)
[2019-05-25 21:14] LABS: ABG PH 7.09 (7.37-7.43)
[2019-05-25 21:15] LABS: ALLENS TEST YES-POS; INSPIRED O2 50%; VENTILATOR YES
[2019-05-25] MEDS ORDERED: MIDAZOLAM 5 MG/5 ML (VERSED) VIAL INJ ONE (21:29)
[2019-05-25] MEDS ORDERED: ETOMIDATE IV SOLN 20 MG/10 ML VIAL IV ONE (21:29)
[2019-05-25] MEDS ORDERED: SUCCINYLCHOLINE INJ 100 MG/5 ML SYR INJ ONE (21:29)
[2019-05-25] MEDS ORDERED: RT-ALBUTEROL/IPRATROPIUM 3 ML (DUONEB) VIAL INH SCH (22:00)
[2019-05-26] MEDS ORDERED: KCL 20 MEQ TAB (K-DUR) PO SCH (06:00)
[2019-05-26] MEDS ORDERED: MAGNESIUM 1 GM/100 ML IVPB 100 ML IV SCH (06:00)
[2019-05-26] MEDS ORDERED: POTASSIUM CL 10MEQ/50ML IVPB 50 ML IV SCH (06:00)
== END 2019-05-25 21:30 | disposition designated cancer center or children's hospital (05) | DRG 871 ==
LOC: EDUNIT# 11:05 → ER 11:07 → ICU 14:00
PROVIDERS: ADMIT Internal Medicine; ATTEND Internal Medicine
PROC: 02HV33Z Insertion of Infusion Device into Superior Vena Cava, Percutaneous Approach (ICD-10-PCS; principal; 2019-05-25)
PROC: 0BH17EZ Insertion of Endotracheal Airway into Trachea, Via Natural or Artificial Opening (ICD-10-PCS; 2019-05-25)
DX: A41.9 Sepsis, unspecified organism (principal); R65.21 Severe sepsis with septic shock; J18.9 Pneumonia, unspecified organism; J96.01 Acute respiratory failure with hypoxia; N17.9 Acute kidney failure, unspecified; E87.2 Acidosis; E11.649 Type 2 diabetes mellitus with hypoglycemia without coma; A08.4 Viral intestinal infection, unspecified; E03.9 Hypothyroidism, unspecified; F17.210 Nicotine dependence, cigarettes, uncomplicated; Z90.710 Acquired absence of both cervix and uterus
CPT/HCPCS: 36415; 36600; 71045; 80048; 80053; 81000; 82805; 82962; 83605; 84100; 84145; 85007; 85025; 85027; 85610; 85730; 87040; 87077; 87081; 87088; 87449; 87804; 94002; 94640; 94799

== ENCOUNTER → 2020-01-27 | Outpatient (CLI) | payer BC ==
--- NOTE | 2020-01-27 12:46 | Diagnostic Imaging Report ---
INDICATION: Screening. The current study was also evaluated with a Computer Aided Detection (CAD) system. 3-D Tomographic imaging was also performed. Comparison evaluation 01/15/2019, 01/22/2018 and 01/16/2017. FINDINGS: There is a tiny nodular density in the subareolar region left breast with focal calcification within it. There are otherwise scattered fibroglandular densities. There is no other new dominant mass, spiculated lesion or suspicious calcification identified. Skin, nipples and axillae are unremarkable. IMPRESSION: Category 0, further imaging needed. New tiny nodular density in the subareolar region left breast with a focal calcification within it. Recommend further evaluation with spot compression views and if warranted ultrasound. ACR BI-RADS Category 0: Incomplete. (Needs additional imaging evaluation). Result letter will be mailed to the patient. Note: At least 10% of breast cancer is not imaged by mammography. Dictated by: Dictated on workstation # [id number]
== END ==
LOC: RAD 09:16
PROVIDERS: ATTEND Family Medicine
DX: Z12.31 Encounter for screening mammogram for malignant neoplasm of breast (principal); R92.0 Mammographic microcalcification found on diagnostic imaging of breast
CPT/HCPCS: 77063; 77067

== ENCOUNTER → 2020-02-10 | Outpatient (CLI) | payer BC ==
--- NOTE | 2020-02-10 13:23 | Diagnostic Imaging Report ---
INDICATION: Left breast density. Patient presents for additional views. COMPARISON: Correlation is made with the recent screening study from 01/27/2020. TECHNIQUE: Unilateral left 2D and 3D diagnostic mammography was performed with CAD. This included spot compression CC and ML views as well as a conventional 90 degree lateral view. FINDINGS: The additional views confirm the presence of a tiny circumscribed nodular density in the retroareolar region approximately 2 cm behind the nipple. This has fairly benign features but further evaluation with ultrasound is recommended. No other abnormality is seen. IMPRESSION: Tiny circumscribed density with central benign calcification in the retroareolar left breast. Further evaluation with ultrasound is recommended and will be performed today. ACR BI-RADS Category 0: Incomplete. (Needs additional imaging evaluation). Result letter will be mailed to the patient. Note: At least 10% of breast cancer is not imaged by mammography. Dictated by: Dictated on workstation # [id number]
--- NOTE | 2020-02-10 14:18 | Diagnostic Imaging Report ---
INDICATION: Left breast density. COMPARISON: Correlation is made with the diagnostic mammogram from earlier this same day and the screening mammogram from 01/27/2020. FINDINGS: Sonographic interrogation of the retroareolar left breast was performed. There is a tiny circumscribed hypoechoic nodule in the retroareolar location measuring 2 mm in size. This does contain a punctate hyperechogenicity, consistent with calcification. This likely accounts for the mammographic density. This has fairly benign features. No other abnormality is detected. IMPRESSION: Benign-appearing nodule in the left retroareolar left breast, accounting for the mammographic density. Followup left mammogram and left breast ultrasound in 6 months is recommended to confirm stability. ACR BI-RADS Category 3: Probably benign findings. Dictated by: Dictated on workstation # [id number]
== END ==
LOC: RAD 12:27
PROVIDERS: ATTEND Family Medicine
DX: N63.20 Unspecified lump in the left breast, unspecified quadrant (principal)
CPT/HCPCS: 76642; 77065; G0279

== ENCOUNTER → 2020-08-12 | Outpatient (CLI) | payer BC ==
--- NOTE | 2020-08-12 15:40 | Diagnostic Imaging Report ---
INDICATION: Six-month followup left breast nodule. COMPARISON: Correlation is made with the diagnostic mammogram from earlier this same day and a breast ultrasound from 02/10/2020. FINDINGS: The previously noted tiny hypoechoic nodule in the retroareolar left breast with central calcification is again noted measuring 2 mm. This has benign features. No new mass is detected. IMPRESSION: Stable benign nodule in the retroareolar left breast. The patient may return to routine annual screening mammography. ACR BI-RADS Category 2: Benign findings. Dictated by: Dictated on workstation # [id number]
--- NOTE | 2020-08-12 15:58 | Diagnostic Imaging Report ---
INDICATION: Six-month followup left breast nodule. COMPARISON: Correlation is made with the prior mammograms from 01/27/2020 and 01/15/2019. TECHNIQUE: Unilateral left 2D and 3D diagnostic mammography was performed with CAD. FINDINGS: Scattered fibroglandular densities in the left breast are noted. The tiny nodule with central calcification in the retroareolar left breast is stable. No new mass or malignant appearing microcalcifications are seen. The left axilla is unremarkable. IMPRESSION: Stable left mammogram. Followup of the nodule in the retroareolar left breast with ultrasound is again recommended and will be performed today. ACR BI-RADS Category 0: Incomplete. (Needs additional imaging evaluation). Result letter will be mailed to the patient. Note: At least 10% of breast cancer is not imaged by mammography. Dictated by: Dictated on workstation # [id number]
== END ==
LOC: RAD 09:15
PROVIDERS: ATTEND Family Medicine
DX: N63.20 Unspecified lump in the left breast, unspecified quadrant (principal)
CPT/HCPCS: 76642; 77065; G0279

== ENCOUNTER → 2020-08-26 | Outpatient (CLI) | payer BC ==
--- NOTE | 2020-08-26 13:54 | Diagnostic Imaging Report ---
INDICATION: Right hip pain. FINDINGS: Two views of the right hip show narrowing of the right hip joint space. There are osteophytes forming at the superior lateral margin of the acetabulum. There is no fracture or dislocation. IMPRESSION: Moderate degenerative changes of the right hip. Dictated by: Dictated on workstation # [id number]
--- NOTE | 2020-08-26 15:27 | Diagnostic Imaging Report ---
INDICATION: Chronic back pain. COMPARISON: None FINDINGS: Multiple frontal and lateral radiographic views of the lumbar spine were obtained. Please note, there is transitional lumbosacral anatomy with partial sacralization of L5 on the right. Static alignment is maintained. There is no significant sanford- or retrolisthesis. There is no evidence of jumped facets. Vertebral body heights are preserved. There is no acute fracture. Moderate multilevel degenerative changes are noted at the L4-L5 and L5-S1 levels. This consists of significant intervertebral disc height loss and endplate sclerotic change. No unexpected radiopaque foreign bodies are seen. IMPRESSION: 1. No acute fracture or dislocation in the lumbar spine. 2. Advanced degenerative changes of the lower lumbar spine. Dictated by: Dictated on workstation # [id number]
== END ==
LOC: RAD 12:02
PROVIDERS: ATTEND Family Medicine
DX: M16.11 Unilateral primary osteoarthritis, right hip (principal); M47.26 Other spondylosis with radiculopathy, lumbar region
CPT/HCPCS: 72100; 73502

== ENCOUNTER → 2020-10-19 | Outpatient (CLI) | payer BC | LOC: LABNPT 06:51 | PROVIDERS: ATTEND Orthopaedic Surgery | DX: Z01.812 Encounter for preprocedural laboratory examination (principal); Z20.822 Contact with and (suspected) exposure to COVID-19 | CPT/HCPCS: 87635 ==

== ENCOUNTER → 2021-03-29 | Outpatient (CLI) | payer BC | LOC: LABNPT 06:14 | PROVIDERS: ATTEND Orthopaedic Surgery | DX: Z01.812 Encounter for preprocedural laboratory examination (principal); Z20.822 Contact with and (suspected) exposure to COVID-19 | CPT/HCPCS: 87635 ==

== ENCOUNTER → 2021-08-23 | Outpatient (CLI) | payer BC ==
--- NOTE | 2021-08-23 12:03 | Diagnostic Imaging Report ---
INDICATION: Routine screening. Comparison is made with prior mammogram from 01/27/2020 and 01/23/2019. 2-D and 3-D bilateral screening mammography was performed with CAD. Scattered fibroglandular densities are identified bilaterally. The parenchymal pattern is stable. No new mass or malignant-appearing microcalcifications are seen. Benign nodular retroareolar left breast again noted. Axillae are unremarkable. IMPRESSION: BI-RADS Category 2 No mammographic features suspicious for malignancy are identified. ACR BI-RADS Category 2: Benign findings. Result letter will be mailed to the patient. Note: At least 10% of breast cancer is not imaged by mammography. Dictated by: Dictated on workstation # [id number]
== END ==
LOC: RAD 09:45
PROVIDERS: ATTEND Family Medicine
DX: Z12.31 Encounter for screening mammogram for malignant neoplasm of breast (principal)
CPT/HCPCS: 77063; 77067

== ENCOUNTER 2022-06-25 10:45 | Inpatient (IN) | payer BC ==
[2022-06-25] VITALS (8 sets, daily range): BP systolic 122–156; BP diastolic 61–74
[~2022-06-25] VITALS: Ht 160 cm; Wt 51.0 kg
--- NOTE | 2022-06-25 11:23 | ED GI ---
General Stated Complaint: C-DIFF Source of Information: Patient Exam Limitations: No Limitations (LINH SHELDON APRN) History of Present Illness Date Seen by Provider: Jun 25, 2022 Time Seen by Provider: 11:10 Initial Comments Patient is a 62-year-old female who presents to the emergency department for evaluation of weakness and persistent diarrhea. Patient was diagnosed with C. difficile at her PCPs office on May 16. She states she presented to her PCPs office due to frequent recurrent diarrhea. She was placed on a 10-day course of oral vancomycin which she completed as prescribed. She states her symptoms did seem to improve with that treatment. She states she has been using Imodium frequently since that time to help control her diarrhea. She states her appetite has been very decreased. Endorses some mild diffuse abdominal pain. Denies any bloody stools. She states that she typically has diarrhea after she eats if she is not taking her Imodium. She states she took a dose of Imodium today so has had no diarrhea. Denies any recent fevers. (LINH SHELDON APRN) Allergies and Home Medications Allergies Coded Allergies: No Known Drug Allergies (Verified , 04/05/07) Patient Home Medication List Home Medication List Reviewed: Yes (LINH SHELDON APRN) Acetaminophen (Acetaminophen) 325 Mg Tablet, 325 MG PO QID, (Reported) Entered as Reported by: JAYDON PAULINO on 06/25/221606 Last Action: New Order Amlodipine Besylate/Benazepril (Amlodipine-Benazepril 5-40 mg) 5 Mg-40 Mg Capsule, 5-40 EACH PO DAILY, (Reported) Entered as Reported by: JAYDON PAULINO on 06/25/221606 Last Action: New Order Aspirin (Aspirin Ec 81 Mg) 81 Mg Tabec, 81 MG PO DAILY, (Reported) Entered as Reported by: CALLUM BEEBE on 11/16/09 1303 Last Action: Reviewed Atorvastatin Calcium (Atorvastatin Calcium) 10 Mg Tablet, (Reported) Entered as Reported by: JAYDON PAULINO on 06/25/221606 Last Action: New Order Azathioprine (Imuran) 50 Mg Tablet, (Reported) Entered as Reported by: JAYDON PAULINO on 06/25/221606 Last Action: New Order Duloxetine HCl (Duloxetine HCl) 60 Mg Capsule., (Reported) Entered as Reported by: JAYDON PAULINO on 06/25/221606 Last Action: New Order Hydrocodone/Acetaminophen (Hydrocodone-Acetamin 10-325 mg) 10 Mg-325 Mg Tablet, (Reported) Entered as Reported by: JAYDON PAULINO on 06/25/221606 Last Action: New Order Hydroxychloroquine Sulfate (Hydroxychloroquine Sulfate) 200 Mg Tablet, (Reported) Entered as Reported by: JAYDON PAULINO on 06/25/221606 Last Action: New Order Metformin HCl (Metformin HCl) 500 Mg Tablet, (Reported) Entered as Reported by: JAYDON PAULINO on 06/25/221606 Last Action: New Order Methimazole (Methimazole) 5 Mg Tablet, (Reported) Entered as Reported by: JAYDON PAULINO on 06/25/221606 Last Action: New Order Methocarbamol (Methocarbamol) 750 Mg Tablet, (Reported) Entered as Reported by: JAYDON PAULINO on 06/25/221606 Last Action: New Order Metoprolol Succinate (Metoprolol Succinate) 100 Mg Tab.er.24h, (Reported) Entered as Reported by: JAYDON PAULINO on 06/25/221606 Last Action: New Order Pantoprazole Sodium (Pantoprazole Sodium) 40 Mg Tablet., (Reported) Entered as Reported by: JAYDON PAULINO on 06/25/221606 Last Action: New Order Pregabalin (Pregabalin) 200 Mg Capsule, (Reported) Entered as Reported by: JAYDON PAULINO on 06/25/221606 Last Action: New Order Discontinued Medications Acidophilus/Bulgaricus (Lactinex Tab) 1 Tab.chew Tab.chew, 1 TAB.CHEW PO BID, (Reported) Discontinued Reason: No Longer Taking Entered as Reported by: CALLUM BEEBE on 11/16/091302 Last Action: Discontinued Hydrocodone Bit/Acetaminophen (Hydrocodone-Apap 7.5-650 Tab) 1 Each Tablet, 1 EACH PO Q4HR PRN, (Reported) Discontinued Reason: New Order Entered as Reported by: CALLUM BEEBE on 11/16/091302 Last Action: Discontinued Phenobarb/Hyoscy/Atropine/Scop (Belladonna/Phenobarb Tablet) 16.2 Mg Tablet, 2 TAB PO BID, (Reported) Discontinued Reason: No Longer Taking Entered as Reported by: CALLUM BEEBE on 11/16/091302 Last Action: Discontinued [Hydrocodone] , (Reported) Discontinued Reason: No Longer Taking Entered as Reported by: ALBIN DOUGLASS on 04/05/07 1644 Last Action: Discontinued [Methacarbamal] , 1,500 MG PO BID, (Reported) Discontinued Reason: New Order Entered as Reported by: CALLUM BEEBE on 11/16/09 130 Last Action: Discontinued [Nifedipine] , 60 MG PO DAILY, (Reported) Discontinued Reason: No Longer Taking Entered as Reported by: CALLUM BEEBE on 11/16/091303 Last Action: Discontinued Review of Systems Review of Systems Constitutional: see HPI, weakness EENTM: No Symptoms Reported Respiratory: No Symptoms Reported Cardiovascular: No Symptoms Reported Gastrointestinal: See HPI, Abdominal Pain, Diarrhea Genitourinary: No Symptoms Reported Musculoskeletal: no symptoms reported Skin: no symptoms reported Psychiatric/Neurological: No Symptoms Reported Endocrine: No Symptoms Reported Hematologic/Lymphatic: No Symptoms Reported (LINH SHELDON APRN) Past Fnjvsgy-Maxapz-Gohtob Hx Past Medical History Surgeries: Yes (X2 SHOULDER,HYST,RODOLFO,ERCP,C-SECT.,EGD,COLONOSCOPY) Gallbladder, Hysterectomy, Oophorectomy Respiratory: No Cardiac: Yes Neurological: No Reproductive Disorders: Yes (6.2 LB.MASS ON RIGHT OVARY-HYSTERECTOMY) Sexually Transmitted Disease: No Gastrointestinal: Yes (HIATAL HERNIA REPAIR 2006) Musculoskeletal: Yes (HERNIATED DISC/ARTHRITIS) Endocrine: No Hypothyroidsim, Diabetes, Non-Insulin dep Blood Disorders: No (LINH SHELDON APRN) Physical Exam Vital Signs Vital Signs - First Documented 06/25/22 10:50 Temp 35.6 Pulse 91 Resp 15 B/P (MAP) 132/76 (94) Pulse Ox 100 (NATASHA BELTRAN MD) Vital Signs Capillary Refill : (LINH SHELDON APRN) Height/Weight/BMI Height: '" Weight: lbs. oz. kg; 19.33 BMI Method: General Appearance: WD/WN, no apparent distress HEENT: PERRL/EOMI, normal ENT inspection, TMs normal, pharynx normal Neck: non-tender, full range of motion, supple, normal inspection Respiratory: chest non-tender, lungs clear, normal breath sounds, no respiratory distress, no accessory muscle use Cardiovascular: regular rate, rhythm Gastrointestinal: normal bowel sounds, non tender, soft, no organomegaly Neurologic/Psychiatric: no motor/sensory deficits, alert, normal mood/affect, oriented x 3 Skin: normal color, warm/dry (SHELDON,LINH OPERATIONS SUPPORT COORDINATOR) Progress/Results/Core Measures Results/Orders Lab Results Laboratory Tests Test 06/25/22 11:20 Range/Units White Blood Count 5.5 4.3-11.0 10^3/uL Red Blood Count 1.76 L 3.80-5.11 10^6/uL Hemoglobin 6.3 *L 11.5-16.0 g/dL Hematocrit 19 *L 35-52 % Mean Corpuscular Volume 105 H 80-99 fL Mean Corpuscular Hemoglobin 36 H 25-34 pg Mean Corpuscular Hemoglobin Concent 34 32-36 g/dL Red Cell Distribution Width 17.2 H 10.0-14.5 % Platelet Count 187 130-400 10^3/uL Mean Platelet Volume 10.6 9.0-12.2 fL Immature Granulocyte % (Auto) 2 % Neutrophils (%) (Auto) 85 H 42-75 % Lymphocytes (%) (Auto) 9 L 12-44 % Monocytes (%) (Auto) 4 0-12 % Eosinophils (%) (Auto) 0 0-10 % Basophils (%) (Auto) 0 0-10 % Neutrophils # (Auto) 4.6 1.8-7.8 10^3/uL Lymphocytes # (Auto) 0.5 L 1.0-4.0 10^3/uL Monocytes # (Auto) 0.2 0.0-1.0 10^3/uL Eosinophils # (Auto) 0.0 0.0-0.3 10^3/uL Basophils # (Auto) 0.0 0.0-0.1 10^3/uL Immature Granulocyte # (Auto) 0.1 0.0-0.1 10^3/uL Prothrombin Time 14.1 12.2-14.7 SEC INR Comment 1.0 0.8-1.4 Activated Partial Thromboplast Time 33 24-35 SEC Sodium Level 124 *L 135-145 MMOL/L Potassium Level 4.1 3.6-5.0 MMOL/L Chloride Level 86 L 98-107 MMOL/L Carbon Dioxide Level 21 21-32 MMOL/L Anion Gap 17 H 5-14 MMOL/L Blood Urea Nitrogen 10 7-18 MG/DL Creatinine 0.47 L 0.60-1.30 MG/DL Estimat Glomerular Filtration Rate 107 BUN/Creatinine Ratio 21 Glucose Level 84 70-105 MG/DL Calcium Level 10.2 H 8.5-10.1 MG/DL Corrected Calcium 11.2 H 8.5-10.1 MG/DL Total Bilirubin 1.1 H 0.1-1.0 MG/DL Aspartate Amino Transf (AST/SGOT) 18 5-34 U/L Alanine Aminotransferase (ALT/SGPT) 14 0-55 U/L Alkaline Phosphatase 121 40-136 U/L Total Protein 5.1 L 6.4-8.2 GM/DL Albumin 2.8 L 3.2-4.5 GM/DL (NATASHA BELTRAN MD) Vital Signs/I&O 06/25/22 10:50 Temp 35.6 Pulse 91 Resp 15 B/P (MAP) 132/76 (94) Pulse Ox 100 (NATASHA BELTRAN MD) Progress Progress Note : Progress Note Patient is nontoxic. Abdominal exam is reassuring without any significant focal provocation of pain on palpation. No abdominal distention or rigidity appreciated. Low suspicion for megacolon. Patient did require significant assistance to transition from the wheelchair to the ED stretcher. Vital signs are overall reassuring. Orders placed for CBC, CMP, urinalysis, IV insertion, KUB, and 1 L of LR. CBC notable for significant anemia. Exact source of the anemia is uncertain at this time as patient denies any hematochezia, melena, or any other known source of bleeding. Coagulation studies were added to the blood in lab. Type and screen was also ordered. KUB acutely negative with no evidence of obstructive p rocess or megacolon. CMP notable for hypochloremia and hyponatremia. Patient will be admitted for further evaluation and treatment. I spoke with Dr. Rubio with hospital medicine who kindly agreed to admit the patient. She did request that an order for 1 unit of PRBCs to be ordered once the type and screen is resulted. She also requested I consult general surgery to make them aware of the patient. I spoke with Dr. Hale with general surgery who states he will consult on the patient while they are admitted. He did not give any acute recommendations and states the patient is okay to have a regular diet. Patient and were updated on plan of care and understanding was verbalized. (LINH SHELDON APRN) Consults : Consulting Physician: BETI HALE MD Consults Notes agrees to see in consultation while admitted; no acute recommendations; ok with patient having regular diet (LINH SHELDON APRN) Departure Impression Primary Impression: Symptomatic anemia Additional Impression: Diarrhea Qualified Codes: R19.7 - Diarrhea, unspecified Disposition: ADMITTED INPATIENT Condition: Stable Admissions Decision to Admit/Date: Jun 25, 2022 Time/Decision to Admit Time: 12:10 (LINH SHELDON APRN) Departure-Patient Inst. Referrals: PIETRO TURK DO (PCP/Family) Primary Care Physician ATTENDING PHYSICIAN NOTE: I was physically present as attending physician in the emergency department during the care of this patient, but I was not directly involved in the decision making or delivery of care for this patient. (NATASHA BELTRAN MD) LINH SHELDON APRN Jun 25, 2022 11:23 NATASHA BELTRAN MD Jun 25, 2022 19:27
[2022-06-25] MEDS ORDERED: LACTATED RINGERS 1,000 ML IV SCH (11:30)
--- NOTE | 2022-06-25 11:42 | Diagnostic Imaging Report ---
INDICATION: Pain FINDINGS: There are bilateral total hip replacements. Surgical clips in the gallbladder fossa noted. The bowel gas pattern unremarkable. IMPRESSION: Post interventional changes but no acute appearing abnormality. Dictated by: Dictated on workstation # [id number]
[2022-06-25 11:45] LABS: BASOPHILS % (AUTO) 0 % (0-10); EOSINOPHILS % (AUTO) 0 % (0-10); LYMPHOCYTES # (AUTO) 0.5 10^3/uL (1.0-4.0); LYMPHOCYTES % (AUTO) 9 % (12-44); MEAN CORPUSCULAR HEMOGLOBIN 36 pg (25-34); MEAN CORPUSCULAR HGB CONC 34 g/dL (32-36); MEAN CORPUSCULAR VOLUME 105 fL (80-99); MEAN PLATELET VOLUME 10.6 fL (9.0-12.2); MONOCYTES # (AUTO) 0.2 10^3/uL (0.0-1.0); MONOCYTES % (AUTO) 4 % (0-12); NEUTROPHILS # (AUTO) 4.6 10^3/uL (1.8-7.8); NEUTROPHILS % (AUTO) 85 % (42-75); PLATELET COUNT 187 10^3/uL (130-400); WHITE BLOOD COUNT 5.5 10^3/uL (4.3-11.0)
[2022-06-25 11:54] LABS: ALBUMIN 2.8 GM/DL (3.2-4.5); HEMATOCRIT 19 % (35-52); HEMOGLOBIN 6.3 g/dL (11.5-16.0); POTASSIUM 4.1 MMOL/L (3.6-5.0)
[2022-06-25 11:55] LABS: CALCIUM 10.2 MG/DL (8.5-10.1)
[2022-06-25 11:56] LABS: TOTAL PROTEIN 5.1 GM/DL (6.4-8.2)
[2022-06-25 11:58] LABS: BILIRUBIN,TOTAL 1.1 MG/DL (0.1-1.0)
[2022-06-25 12:00] LABS: CREATININE SERUM 0.47 MG/DL (0.60-1.30)
[2022-06-25 12:11] LABS: PROTHROMBIN TIME PATIENT 14.1 SEC (12.2-14.7)
[2022-06-25] MEDS ORDERED: NS IV 500 ML 500 ML IV SCH ×2 (12:15→19:45)
--- NOTE | 2022-06-25 13:21 | History & Physical-Hospitalist ---
History of Present Illness HPI/Chief Complaint Pt is a 62yoCF with a PMh of recurrent c diff who presented to the ER due to weakness and diarrhea. She has had c diff a few years ago and then was diagnosed again just before . She completed oral vancomycin as an outpatient but despite this has continue to have diarrhea. She also has had loss of appetite and has lost some weight. She reports poor oral intake. She states the only thing that helps the diarrhea is imodium but she is trying to not take too much of that either. She denies any dark or bloody stools. She was due for a colonoscopy in 2021 but was unable to get it. Source: patient Date Seen 06/25/22 Time Seen by a Provider: 13:16 Attending Physician Pietro Garcia DO PCP Admitting Physician: Aretha Rubio MD Attending Physician: Aretha Rubio MD Referring Physician BETI MCKEON MD Date of Admission Jun 25, 2022 at 12:00 Home Medications & Allergies Home Medications Reviewed patient Home Medication Reconciliation performed by pharmacy medication reconciliations orthotics prosthetics technician and/or nursing. Patients Allergies have been reviewed. Allergies Allergies Coded Allergies No Known Drug Allergies (Kkumgoey54/8/07) Past Iuemxjh-Hgqxuj-Wlvfhn Hx Patient Social History Marrital Status: Tobacco Use?: No Substance use?: No Alcohol Use?: No Pt feels they are or have been: No Immunizations Up To Date Date of Influenza Vaccine: Mar 15, 2019 First/Initial COVID19 Vaccinat: Y Second COVID19 Vaccination Santana: Y Current Status Advance Directives: No Communicates: Verbally Primary Language: [place]er Preferred Spoken Language: [place]er Is interpretation needed?: No Sensory deficits: Vision impairment Implanted or Applied Medical D: None Past Medical History Surgeries: Gallbladder, Hysterectomy, Oophorectomy Sexually Transmitted Disease: No Hypothyroidsim, Diabetes, Non-Insulin dep Blood Disorders: No Family Medical History Reviewed Nursing Family Hx No Pertinent Family Hx Review of Systems Constitutional: see HPI Gastrointestinal: abdominal pain Physical Exam Physical Exam Vital Signs Vital Signs - First Documented 06/25/22 06/25/22 10:50 13:16 Temp 35.6 Pulse 91 Resp 15 B/P (MAP) 132/76 (94) Pulse Ox 100 O2 Delivery Room Air Capillary Refill : Less Than 3 Seconds Height, Weight, BMI Height: '" Weight: lbs. oz. kg; 20.00 BMI Method: General Appearance: No Apparent Distress, Thin, Other (fatigued) HEENT: PERRL/EOMI, Other (mask obsucres oral exam) Respiratory: Lungs Clear, No Accessory Muscle Use, No Respiratory Distress Cardiovascular: Regular Rate, Rhythm, No Murmur Gastrointestinal: Normal Bowel Sounds, Non Tender, Soft; No Distended, No Guard ing Neurologic/Psychiatric: Alert, Oriented x3, Normal Mood/Affect Results Results/Procedures Labs Laboratory Tests 06/25/22 11:20 06/25/22 19:00 06/26/22 05:48 Patient resulted labs reviewed. Imaging: Reviewed Imaging Report Imaging [facility] [place], [place] NAME: TAMANNA PLTAT [facility] REC#: [id number] PT STATUS: REG ER : 1960 PHYSICIAN: LINH SHELDON APRN ADMIT DATE: 06/25/22/ER Signed Date of Exam:06/25/22 ABDOMEN/KUB 1VIEW INDICATION: Pain FINDINGS: There are bilateral total hip replacements. Surgical clips in the gallbladder fossa noted. The bowel gas pattern unremarkable. IMPRESSION: Post interventional changes but no acute appearing abnormality. Dictated by: Dictated on workstation # [id number] Dict: 06/25/22 1138 Trans: 06/25/22 1206 [facility] [id number] Interpreted by: SAMIR CARCAMO Electronically signed by: SAMIR CARCAMO 06/25/22 1206 Assessment/Plan Admission Diagnosis Symptomatic anemia Admission Status: Inpatient Order (span 2 midnights) Reason for Inpatient Admission: see below Assessment and Plan Symptomatic anemia recent c diff infection Dehydration Hypovolemia hyponatremia hypercalcemia Completed oral vanc Not having watery stools FOBT ordered Surgery consulted 1 unit pRBCs ordered HTN BP well controlled, hold home meds NIDDMII Hold metformin HLD Hold statin DVT ppx; SCDs only Diagnosis/Problems Diagnosis/Problems (1) Dehydration (2) Hyponatremia (3) Hypercalcemia (4) Essential (primary) hypertension (5) Non-insulin dependent type 2 diabetes mellitus (6) Hyperlipidemia (7) Prophylactic measure (8) Symptomatic anemia Status: Acute (9) Diarrhea Status: Acute Qualifiers: Diarrhea type: unspecified type Qualified Codes: R19.7 - Diarrhea, unspeci fied Copy Copies To 1: PIETRO GARCIA KATELYN M MD Jun 25, 2022 13:21
[2022-06-25] MEDS ORDERED: HYDR200T46 PO (16:07)
[2022-06-25] MEDS ORDERED: METH5TAB95 PO (16:07)
[2022-06-25] MEDS ORDERED: DULO60CA59 PO (16:07)
[2022-06-25] MEDS ORDERED: AZAT50TA16 PO (16:07)
[2022-06-25] MEDS ORDERED: HYDR-3820 PO (16:07)
[2022-06-25] MEDS ORDERED: ACET325T49 PO (16:07)
[2022-06-25] MEDS ORDERED: METH-732 PO (16:07)
[2022-06-25] MEDS ORDERED: AMLO-168 PO (16:07)
[2022-06-25] MEDS ORDERED: ATOR10TA66 PO (16:07)
[2022-06-25] MEDS ORDERED: MTP100TCR PO (16:07)
[2022-06-25] MEDS ORDERED: PANT40TA52 PO (16:07)
[2022-06-25] MEDS ORDERED: PREG200C28 PO (16:07)
[2022-06-25] MEDS ORDERED: METF-397 PO (16:07)
[2022-06-25 19:09] LABS: MEAN CORPUSCULAR HEMOGLOBIN 34 pg (25-34); MEAN CORPUSCULAR HGB CONC 35 g/dL (32-36); MEAN CORPUSCULAR VOLUME 99 fL (80-99); MEAN PLATELET VOLUME 10.3 fL (9.0-12.2); PLATELET COUNT 156 10^3/uL (130-400)
[2022-06-25 19:12] LABS: HEMATOCRIT 20 % (35-52); HEMOGLOBIN 6.8 g/dL (11.5-16.0)
[2022-06-25] MEDS ORDERED: NS IV 500 ML 500 ML ONE (19:44)
[2022-06-26 03:23] LABS: BILIRUBIN,URINE NEGATIVE (NEGATIVE); CLARITY,URINE CLOUDY; COLOR,URINE YELLOW; GLUCOSE, URINE (UA) NEGATIVE (NEGATIVE); KETONES,URINE 2+ (NEGATIVE); LEUKOCYTE ESTERASE ,URINE NEGATIVE (NEGATIVE); NITRITE,URINE NEGATIVE (NEGATIVE); PH,URINE 7.5 (5-9); PROTEIN,URINE NEGATIVE (NEGATIVE)
[2022-06-26 03:25] VITALS: BP 149/79
[2022-06-26 03:38] LABS: AMORPHOUS SEDIMENT,UR LARGE AMOR PHOSPHATE /LPF; BACTERIA,URINE NEGATIVE /HPF
[2022-06-26 06:04] LABS: BASOPHILS % (AUTO) 1 % (0-10); EOSINOPHILS % (AUTO) 0 % (0-10); HEMATOCRIT 25 % (35-52); HEMOGLOBIN 8.7 g/dL (11.5-16.0); LYMPHOCYTES # (AUTO) 0.3 10^3/uL (1.0-4.0); LYMPHOCYTES % (AUTO) 6 % (12-44); MEAN CORPUSCULAR HGB CONC 35 g/dL (32-36); MEAN CORPUSCULAR VOLUME 95 fL (80-99); MEAN PLATELET VOLUME 10.3 fL (9.0-12.2); MONOCYTES # (AUTO) 0.3 10^3/uL (0.0-1.0); MONOCYTES % (AUTO) 5 % (0-12); NEUTROPHILS # (AUTO) 5.1 10^3/uL (1.8-7.8); NEUTROPHILS % (AUTO) 87 % (42-75); PLATELET COUNT 162 10^3/uL (130-400); WHITE BLOOD COUNT 5.9 10^3/uL (4.3-11.0)
[2022-06-26 06:08] LABS: MEAN CORPUSCULAR HEMOGLOBIN 33 pg (25-34)
[2022-06-26 06:28] LABS: POTASSIUM 3.8 MMOL/L (3.6-5.0)
[2022-06-26 06:29] LABS: CALCIUM 9.9 MG/DL (8.5-10.1)
[2022-06-26 06:33] LABS: CREATININE SERUM 0.45 MG/DL (0.60-1.30)
[2022-06-26 06:47] LABS: ANISOCYTOSIS SLIGHT; ELLIPT/OVALOCYTES SLIGHT; LYMPHOCYTES % (MANUAL) 6 %; MONOCYTES % (MANUAL) 3 %; NEUTROPHILS % (MANUAL) 91 %
[2022-06-26 07:23] VITALS: BP 161/77
[2022-06-26] MEDS ORDERED: METHOCARBAMOL 750 MG (ROBAXIN) TAB PO PRN (10:30)
--- NOTE | 2022-06-26 10:35 | Progress Note - Hospitalist ---
Subjective HPI/CC On Admission Date Seen by Provider: Jun 26, 2022 Pt is a 62yoCF with a PMh of recurrent c diff who presented to the ER due to weakness and diarrhea. She has had c diff a few years ago and then was diagnosed again just before . She completed oral vancomycin as an outpatient but despite this has continue to have diarrhea. She also has had loss of appetite and has lost some weight. She reports poor oral intake. She states the only thing that helps the diarrhea is imodium but she is trying to not take too much of that either. She denies any dark or bloody stools. She was due for a colonoscopy in 2021 but was unable to get it. Subjective/Events-last exam Pt reports doing ok today. Still fatigued. Ate dinner well but not breakfast. Dr Hale was in room when I entered and he recommended no intervention at this time and just supportive care. Objective Exam Vital Signs Vital Signs Date Time Temp Pulse Resp B/P (MAP) Pulse Ox O2 Delivery O2 Flow Rate FiO2 06/26/22 08:00 Room Air 06/26/22 07:23 36.1 91 18 161/77 (105) 97 Capillary Refill : Less Than 3 Seconds General Appearance: No Apparent Distress, Thin Respiratory: Lungs Clear, No Respiratory Distress Cardiovascular: Regular Rate, Rhythm, No Murmur Gastrointestinal: Normal Bowel Sounds, Soft Neurologic/Psychiatric: Alert, Oriented x3 Results/Procedures Lab Laboratory Tests 06/25/22 11:20 06/25/22 19:00 06/26/22 05:48 Patient resulted labs reviewed. Imaging: Reviewed Imaging Report Assessment/Plan Assessment and Plan Assess & Plan/Chief Complaint Symptomatic anemia recent c diff infection Dehydration Hypovolemia hyponatremia hypercalcemia Completed oral vanc as an outpatient No BM in over 24 hours so will DC isolation FOBT ordered Surgery consulted- states no need for scope currently s/p 2 unit pRBCs, Hgb improved this AM IVF Repeat BMP this afternoon HTN BP trended up Resume metoprolol NIDDMII Hold metformin HLD Hold statin DVT ppx; SCDs only Diagnosis/Problems Diagnosis/Problems (1) Dehydration (2) Hyponatremia (3) Hypercalcemia (4) Essential (primary) hypertension (5) Non-insulin dependent type 2 diabetes mellitus (6) Hyperlipidemia (7) Prophylactic measure (8) Symptomatic anemia Status: Acute (9) Diarrhea Status: Acute Qualifiers: Diarrhea type: unspecified type Qualified Codes: R19.7 - Diarrhea, unspecified KAYLA BHAGAT MD Jun 26, 2022 10:35
--- NOTE | 2022-06-26 10:47 | CONSULTATION REPORT ---
DATE OF SERVICE: 06/26/2022 ATTENDING PRIMARY CARE PHYSICIAN: Dayami Garcia DO. HISTORY OF PRESENT ILLNESS: The patient is a 62-year-old female who presented to the Emergency Department with generalized weakness and persistent diarrhea. She states that she was diagnosed with Clostridium difficile colitis with significant diarrhea on 05/16 and was treated as an outpatient with oral vancomycin for 10 days. She states with the combination of the vancomycin as well as Imodium, her diarrhea was under control. She states that she also did have another episode of Clostridium difficile infection back in 2019 and was also treated appropriately at that time. She does not report taking recent antibiotics for any other reason. Over the past few weeks, she has felt generalized weakness and exertional shortness of breath. She was seen in the Emergency Department and she was found to be anemic with a hemoglobin of 6.3. Since being admitted, she was given 2 units of packed red blood cells and her hemoglobin has gone up appropriately. She states that she has been having colonoscopies every 3 years due to polyps. She states that she has an appointment to see a cloth spreader next week. She does not report any crampy abdominal pain. No fever or chills and does state that she continues to have bowel movements, some of which are loose, others more solid when she takes Imodium. PAST MEDICAL HISTORY: Hypertension, hypercholesterolemia, diabetes, hypothyroid. PAST SURGICAL HISTORY: Laparoscopic cholecystectomy, total hysterectomy, section, shoulder surgery, hiatal hernia repair, Hill gastropexy 2009. SOCIAL HISTORY: Negative smoker, negative alcohol. ALLERGIES: NO KNOWN DRUG ALLERGIES. MEDICATIONS: Amlodipine/benazepril 5/40 mg daily, aspirin 81 mg daily, atorvastatin 10 mg daily, azathioprine 50 mg daily, duloxetine 60 mg daily, hydrocodone p.r.n., hydroxychloroquine 200 mg, metformin 500 mg, methimazole 5 mg, metoprolol 100 mg daily, Protonix 40 mg daily, pregabalin 200 mg daily. FAMILY HISTORY: Noncontributory. REVIEW OF SYSTEMS: Well-nourished female, currently in no acute distress. She is not experiencing any shortness of breath or difficulty breathing. No chest pain, palpitations or diaphoresis. No nausea, vomiting with intermittent episodes of looser stools. She does not report any red blood per rectum, nor any dark tarry stools that she has noticed. She reports that she has had a history of reflux; however, since her hiatal hernia repair, she has not had any issues and is currently on Protonix. No fever or chills. No recent inadvertent weight loss. All other review of systems negative. PHYSICAL EXAMINATION: VITAL SIGNS: Temperature 36.1, blood pressure 161/77, pulse 91, respirations 19, pulse ox 97% on room air. CHEST: Good breath sounds bilaterally. HEART: Regular, no murmurs. EXTREMITIES: No lower extremity edema. Negative Homans sign. HEENT: No scleral icterus. No cervical lymphadenopathy. ABDOMEN: Soft, nondistended, nontender. SKIN: Warm and dry. LABORATORY DATA: WBC 5.9, hemoglobin 8.7, hematocrit 25, platelets 162, BUN 7, creatinine 0.45. ASSESSMENT AND PLAN: A 62-year-old female with history of Clostridium difficile colitis and symptomatic diarrhea, admitted for generalized weakness, fatigue, shortness of breath upon exertion as well as anemia. Since being admitted and given 2 units of packed red blood cells, she has felt better. She states that she does not have any abdominal pain and for the most part she is having normal bowel movements for what she has experienced in the past few weeks. She has been seeing a cloth spreader due to what sounds to be some level of inflammatory bowel disease and does have an appointment to see the cloth spreader next week, which we will recommend. Job ID: [id number] DocumentID: [id number] Dictated Date: 06/26/2022 10:16:22 Trouble Locater Date: 06/26/2022 10:44:00 Dictated By: BETI MCKEON MD
[2022-06-26 11:29] VITALS: BP 143/70
[2022-06-26] MEDS: meTOprolol SUCCINATE 100 MG (TOPROL XL) TAB PO SCH ×2 (11:35→20:27)
[2022-06-26] MEDS: NS IV 1000 ML 1,000 ML IV SCH ×3 (11:35→21:47)
[2022-06-26 16:27] VITALS: BP 147/79
[2022-06-26 17:33] LABS: POTASSIUM 3.6 MMOL/L (3.6-5.0)
[2022-06-26 17:34] LABS: CALCIUM 9.8 MG/DL (8.5-10.1)
[2022-06-26 17:38] LABS: CREATININE SERUM 0.45 MG/DL (0.60-1.30)
[2022-06-26] MEDS: PREGABALIN 100 MG (LYRICA) CAPSULE PO SCH (20:27)
[2022-06-26 20:58] VITALS: BP 153/76
[2022-06-26 23:05] VITALS: BP 127/74
[2022-06-27 03:22] VITALS: BP 159/74
[2022-06-27] MEDS: NS IV 1000 ML 1,000 ML IV SCH (06:32)
[2022-06-27 08:00] VITALS: BP 162/82
[2022-06-27] MEDS: DULoxetine 30 MG (CYMBALTA) CAP PO SCH (08:24)
[2022-06-27] MEDS: PANTOPRAZOLE 40 MG (PROTONIX) TAB PO SCH (08:24)
[2022-06-27] MEDS: PREGABALIN 100 MG (LYRICA) CAPSULE PO SCH ×2 (08:24→20:52)
[2022-06-27] MEDS: meTOprolol SUCCINATE 100 MG (TOPROL XL) TAB PO SCH ×2 (08:24→20:52)
[2022-06-27] MEDS: AtorvaSTATin TABLET 10 MG TABLET PO SCH (08:25)
[2022-06-27] MEDS ORDERED: ASPI-1238 PO (09:15)
[2022-06-27] MEDS ORDERED: SODIUM CHLORIDE 3% 500 ML IV SCH (09:30)
--- NOTE | 2022-06-27 09:40 | Physical Therapy Evaluation ---
PT Evaluation-General Medical Diagnosis Admission Date Jun 25, 2022 at 12:00 Medical Diagnosis: C-diff Onset Date: Jun 25, 2022 Therapy Diagnosis Therapy Diagnosis: generalized weakness/debility Precautions Precautions/Isolations: Standard Precautions, Contact/Enteric Isolation Referral Physician: Joanne Reason for Referral: Evaluation/Treatment Medical History Pertinent Medical History: DM, Hypothroidism Current History C-diff diagnosis 05/16/2022/ER secondary to persistent diarrhea Reviewed History: Yes Social History Home: Single Level Current Living Status: Spouse Entry Into Home: Stairs With Railing PT Steps Into Home: 2 Prior Prior Level of Function SCALE: Activities may be completed with or without assistive devices. 1-Cinldreafl-lvoftxz completes the activity by him/herself with no assistance from a helper. 5-Set-up or Clean-up Assistance-helper sets up or cleans up; patient completes activity. [place] assists only prior to or following the activity. 4-Supervision or Touching Assistance-helper provides verbal cues and/or touching/steadying and/or contact guard assistance as patient completes activity. Assistance may be provided throughout the activity or intermittently. 3-Partial/Moderate Assistance-helper does LESS THAN HALF the effort. [place] lifts, holds or supports trunk or limbs, but provides less than half the effort. 2-Substantial/Maximal Assistance-helper does MORE THAN HALF the effort. [place] lifts or holds trunk or limbs and provides more than half the effort. 7-Qbribowck-nazphy does ALL the effort. Patient does none of the effort to complete the activity. Or, the assistance of 2 or more helpers is required for the patient to complete the activity. If activity was not attempted, code reason: 7-Patient Refused. 9-Not Applicable-not attempted and the patient did not perform the activity before the current illness, exacerbation or injury. 10-Not Attempted due to Environmental Limitations-(lack of equipment, weather restraints, etc.). 88-Not Attempted due to Medical Conditions or Safety Concerns. Bed Mobility: 6 Transfers (B,C,W/C): 6 Gait: 6 Stairs: 6 Indoor Mobility (Ambulation): Independent Stairs: Independent Prior Devices Use: Walker (bilateral THR) PT Evaluation-Current Subjective Patient agrees to PT. Objective Patient Orientation: Normal For Age Attachments: IV ROM/Strength ROM Lower Extremities bilateral LE WFL Strength Lower Extremities 3/5 grossly bilateral LE all planes Integumentary/Posture Bowel Incontinence: No Bladder Incontinence: No Posture WFL Neuromuscular (Tone, Coordination, Reflexes) grossly intact Sensory Vision: Functional Hearing: Functional Transfers Lying to Sitting/Side of Bed(Q: 6 Sit to Stand (QC): 4 Chair/Zau-yf-Vbgdj Xfer(QC): 4 Gait Mode of Locomotion: Walk Anticipated Mode of Locomotion: Walk Walk 10 feet (QC): 4 Walk 50 ft with 2 Turns(QC): 4 Walk 150 ft (QC): 4 Distance: 300' Gait Assistive Device: FWW Comments/Gait Description slow, steady gait sequence Balance Sitting Static: Normal Sitting Dynamic: Normal Standing Static: Normal Standing Dynamic: Normal Assessment/Needs Patient will be seen short term by skilled PT to address functional strength and mobility to ensure safe return to home at maximum LOF. Rehab Potential: Fair PT Mcc Goals Sales Mgr Goals PT Mcc Goals Time Frame: Jul 09, 2022 Roll Left & Right (QC): 6 Sit to Lying (QC): 6 Lying-Sitting on Side/Bed(QC): 6 Sit to Stand (QC): 6 Chair/Iyo-mw-Btspz Xfer(QC): 6 Toilet Transfer (QC): 6 Walk 10 feet (QC): 6 Walk 50ft with 2 Turns (QC): 6 Walk 150 ft (QC): 6 PT Plan Problem List Problem List: Activity Tolerance, Functional Strength, Safety, Balance, Gait, Transfer Treatment/Plan Treatment Plan: Continue Plan of Care Treatment Plan: Education, Functional Activity Alla, Functional Strength, Gait, Safety, Therapeutic Exercise, Transfers Treatment Duration: Jul 09, 2022 Frequency: 6 times per week Estimated Hrs Per Day: .25 hour per day Patient and/or Family Agrees t: Yes Time Time In: 813 Time Out: 824 DATE: Jun 27, 2022 Total Billed Treatment Time: 11 Total Billed Treatment 1 visit EVMod 11 min SUSAN SANDERS PT Jun 27, 2022 09:40
[2022-06-27] MEDS ORDERED: amLODIPine 2.5MG (NORVASC) TAB PO ONE (09:45)
--- NOTE | 2022-06-27 09:51 | Progress Note ---
Subjective Date Seen by a Provider: Jun 27, 2022 Time Seen by a Provider: 08:30 Subjective/Events-last exam Fwup hyponatremia, dehydration, weakness, recent C. diff colitis, anemia, HTN. Still not eating well. No BM for 4-5 days. Still very weak. Objective Exam Vital Signs Date Time Temp Pulse Resp B/P (MAP) Pulse Ox O2 Delivery O2 Flow Rate FiO2 06/27/22 08:00 36.2 91 18 162/82 (108) 94 Room Air 06/27/22 03:22 37.2 94 16 159/74 (102) 94 Room Air 06/26/22 23:05 36.8 87 16 127/74 (91) 95 Room Air 06/26/22 20:58 37.0 97 18 153/76 (101) 95 Room Air 06/26/22 20:30 Room Air 06/26/22 16:27 36.5 93 18 147/79 (101) 93 Room Air 06/26/22 11:29 36.9 87 18 143/70 (94) 98 Room Air I & O 06/27/22 07:00 Intake Total 3240 ml Output Total 950 ml Balance 2290 ml Capillary Refill : Less Than 3 Seconds General Appearance: Mild Distress Respiratory: Lungs Clear Cardiovascular: Regular Rate, Rhythm Gastrointestinal: normal bowel sounds, non tender, soft Extremity: Non Tender, No Calf Tenderness, No Pedal Edema Neurologic/Psychiatric: Alert, Oriented x3 Results Lab Laboratory Tests 06/26/22 17:17: Sodium Level 125*L, Potassium Level 3.6, Chloride Level 89L, Carbon Dioxide Level 23, Anion Gap 13, Blood Urea Nitrogen 8, Creatinine 0.45L, Estimat Glomerular Filtration Rate 108, BUN/Creatinine Ratio 18, Glucose Level 87, Calcium Level 9.8 06/27/22 05:43: Glucometer 98 Assessment/Plan Assessment/Plan Assess & Plan/Chief Complaint 1. Hyponatremia--will give hypertonic saline 1 bag today 2. Acute Anemia--S/P transfusion, H/H improved, will check iron studies, will need EGD and colonoscopy but will wait another 2-4 weeks due to recent C. Diff infection 3. Dehydration/Weakness/Anorexia--continue IVFs, PT/OT started 4. Recent C. Diff infection--now with constipation 5. Hypertension-add amlodopine PIETRO TURK DO Jun 27, 2022 09:51
[2022-06-27 12:29] VITALS: BP 131/61
[2022-06-27 15:58] VITALS: BP 151/69
[2022-06-27 19:31] VITALS: BP 153/70
[2022-06-27 23:36] VITALS: BP 146/69
[2022-06-28] MEDS: NS IV 1000 ML 1,000 ML IV SCH ×3 (03:06→14:45)
[2022-06-28 03:15] VITALS: BP 162/64
[2022-06-28 05:40] LABS: HEMATOCRIT 25 % (35-52); HEMOGLOBIN 8.3 g/dL (11.5-16.0); MEAN CORPUSCULAR HEMOGLOBIN 33 pg (25-34); MEAN CORPUSCULAR HGB CONC 34 g/dL (32-36); MEAN CORPUSCULAR VOLUME 97 fL (80-99); MEAN PLATELET VOLUME 10.6 fL (9.0-12.2); PLATELET COUNT 140 10^3/uL (130-400); WHITE BLOOD COUNT 5.3 10^3/uL (4.3-11.0)
[2022-06-28 05:51] LABS: CALCIUM 9.6 MG/DL (8.5-10.1); CREATININE SERUM 0.45 MG/DL (0.60-1.30); POTASSIUM 3.4 MMOL/L (3.6-5.0)
[2022-06-28 07:16] VITALS: BP 172/79
[2022-06-28] MEDS: AtorvaSTATin TABLET 10 MG TABLET PO SCH (09:26)
[2022-06-28] MEDS: DULoxetine 30 MG (CYMBALTA) CAP PO SCH (09:26)
[2022-06-28] MEDS: PREGABALIN 100 MG (LYRICA) CAPSULE PO SCH ×2 (09:26→20:33)
[2022-06-28] MEDS: meTOprolol SUCCINATE 100 MG (TOPROL XL) TAB PO SCH ×2 (09:26→20:32)
[2022-06-28] MEDS: PANTOPRAZOLE 40 MG (PROTONIX) TAB PO SCH (09:26)
[2022-06-28] MEDS: amLODIPine 2.5MG (NORVASC) TAB PO SCH (09:26)
--- NOTE | 2022-06-28 09:53 | Physical Therapy Daily Note ---
PT Daily Note-Current Subjective Patient reports she is feeling better today. Spouse present. Pain Section J - Health Conditions 1. Rarely or not at all 2. Occasionally 3. Frequently 4. Almost constantly 8. Unable to answer Pain Effect on Sleep: 1 Pain Interference with Therapy: 1 Pain Interference w/Day-to-Day: 1 Mental Status Patient Orientation: Normal For Age Attachments: IV Transfers SCALE: Activities may be completed with or without assistive devices. 8-Tiqsivsfxi-hnjdqzj completes the activity by him/herself with no assistance from a helper. 5-Set-up or Clean-up Assistance-helper sets up or cleans up; patient completes activity. [place] assists only prior to or following the activity. 4-Supervision or Touching Assistance-helper provides verbal cues and/or touching/steadying and/or contact guard assistance as patient completes activity. Assistance may be provided throughout the activity or intermittently. 3-Partial/Moderate Assistance-helper does LESS THAN HALF the effort. [place] lifts, holds or supports trunk or limbs, but provides less than half the effort. 2-Substantial/Maximal Assistance-helper does MORE THAN HALF the effort. [place] lifts or holds trunk or limbs and provides more than half the effort. 0-Vrstzarkr-shvbjt does ALL the effort. Patient does none of the effort to complete the activity. Or, the assistance of 2 or more helpers is required for the patient to complete the activity. If activity was not attempted, code reason: 7-Patient Refused. 9-Not Applicable-not attempted and the patient did not perform the activity before the current illness, exacerbation or injury. 10-Not Attempted due to Environmental Limitations-(lack of equipment, weather restraints, etc.). 88-Not Attempted due to Medical Conditions or Safety Concerns. Lying to Sitting/Side of Bed(Q: 6 Sit to Stand (QC): 6 Chair/Zow-ey-Nloxo Xfer(QC): 6 Gait Training Distance: 400' Walk 10 feet (QC): 6 Walk 50 ft with 2 Turns(QC): 6 Walk 150 ft (QC): 6 Gait Assistive Device: FWW safe and functional with no deviation Assessment PT to dismiss patient from services at this time due to much improve mobility. PT instructed patient and spouse to ambulate PRN in hallway. RN notified. PT Diesel Power Mechanic Goals Diesel Power Mechanic Goals PT Diesel Power Mechanic Goals Time Frame: Jul 09, 2022 Roll Left & Right (QC): 6 Sit to Lying (QC): 6 Lying-Sitting on Side/Bed(QC): 6 Sit to Stand (QC): 6 Chair/Eua-vg-Hvjus Xfer(QC): 6 Toilet Transfer (QC): 6 Walk 10 feet (QC): 6 Walk 50ft with 2 Turns (QC): 6 Walk 150 ft (QC): 6 PT Plan Treatment/Plan Treatment Plan: Discontinue PT, goals met Treatment Plan: Education, Functional Activity Alla, Functional Strength, Gait, Safety, Therapeutic Exercise, Transfers Treatment Duration: Jul 09, 2022 Frequency: 6 times per week Estimated Hrs Per Day: .25 hour per day Patient and/or Family Agrees t: Yes Time Time In: 911 Time Out: 921 DATE: Jun 28, 2022 Total Billed Treatment Time: 10 Total Billed Treatment 1 visit FA 10 min SUSAN SANDERS PT Jun 28, 2022 09:53
[2022-06-28 11:26] VITALS: BP 122/66
--- NOTE | 2022-06-28 13:04 | Progress Note ---
Subjective Date Seen by a Provider: Jun 28, 2022 Time Seen by a Provider: 13:02 Subjective/Events-last exam Fwup hyponatremia, dehydration, weakness, recent C. diff colitis, anemia, HTN. Feels a little better. Still weak. No BM for 5 days now. Objective Exam Vital Signs Date Time Temp Pulse Resp B/P (MAP) Pulse Ox O2 Delivery O2 Flow Rate FiO2 06/28/22 11:26 36.3 76 16 122/66 (84) 95 Room Air 06/28/22 08:00 97 Room Air 06/28/22 07:16 37.2 93 18 172/79 (110) 97 Room Air 06/28/22 03:15 36.0 82 18 162/64 (96) 96 Room Air 06/27/22 23:36 36.0 82 18 146/69 (94) 95 Room Air 06/27/22 20:45 Room Air 06/27/22 19:31 37.0 91 20 153/70 (97) 99 Room Air 06/27/22 15:58 36.3 80 20 151/69 (96) 94 Room Air I & O 06/28/22 07:00 Intake Total 1840 ml Output Total 900 ml Balance 940 ml Capillary Refill : Less Than 3 Seconds General Appearance: Mild Distress Respiratory: Lungs Clear Cardiovascular: Regular Rate, Rhythm Gastrointestinal: normal bowel sounds, soft, tenderness (RUQ) Extremity: Non Tender, No Calf Tenderness, No Pedal Edema Neurologic/Psychiatric: Alert, Oriented x3 Results Lab Laboratory Tests 06/28/22 05:20: White Blood Count 5.3, Red Blood Count 2.52L, Hemoglobin 8.3L, Hematocrit 25L, Mean Corpuscular Volume 97, Mean Corpuscular Hemoglobin 33, Mean Corpuscular Hemoglobin Concent 34, Red Cell Distribution Width 19.2H, Platelet Count 140, Mean Platelet Volume 10.6, Sodium Level 133L, Potassium Level 3.4L, Chloride Level 99, Carbon Dioxide Level 23, Anion Gap 11, Blood Urea Nitrogen 7, Creatinine 0.45L, Estimat Glomerular Filtration Rate 108, BUN/Creatinine Ratio 16, Glucose Level 108H, Calcium Level 9.6 Assessment/Plan Assessment/Plan Assess & Plan/Chief Complaint 1. Hyponatremia--improving 2. Acute Anemia--S/P transfusion, H/H improved, will need EGD and colonoscopy but will wait another 2-4 weeks due to recent C. Diff infection 3. Dehydration/Weakness/Anorexia--continue IVFs, PT/OT started 4. Recent C. Diff infection--now with constipation--will start stool softener 5. Hypertension-improving with adding amlodopine 6. Elevated Ferritin--check liver US then will need outpatient referral pending US results PIETRO TURK DO Jun 28, 2022 13:04
[2022-06-28] MEDS ORDERED: DOCUSATE SODIUM 100 MG (COLACE) CAP PO NR (13:15)
[2022-06-28 16:30] VITALS: BP 132/59
--- NOTE | 2022-06-28 16:49 | Diagnostic Imaging Report ---
PROCEDURE: US Hepatic (Liver). TECHNIQUE: Multiple real-time grayscale images were obtained over the right upper quadrant in various projections. INDICATION: Elevated ferritin levels. FINDINGS: Uterus is upper limits of normal in size at 17.5 cm. There are multiple hypoechoic masses in the liver which cannot be characterized as purely cystic. Largest lesion in the left lobe is 3.6 x 2.9 x 3.4 cm. Largest lesion in the right lobe is 2.6 x 2.4 x 2.6 cm. Hepatic metastatic disease cannot be excluded. Portal vein is patent and shows normal direction of flow. Gallbladder is surgically absent. There is no biliary ductal dilatation. Visualized pancreas is unremarkable. The proximal aorta is nonaneurysmal. The upper IVC is patent. Right kidney is unremarkable. There is no ascites. IMPRESSION: Multiple complex liver masses. Dedicated CT with contrast would be recommended for further evaluation. Dictated by: Dictated on workstation # [id number]
[2022-06-28 20:22] VITALS: BP 137/63
[2022-06-28] MEDS: DOCUSATE SODIUM 100 MG (COLACE) CAP PO SCH (20:32)
[2022-06-28 23:14] VITALS: BP 130/73
[2022-06-29] MEDS: NS IV 1000 ML 1,000 ML IV SCH (02:51)
[2022-06-29 03:46] VITALS: BP 148/78
[2022-06-29 05:39] VITALS: BP 135/76
[2022-06-29 05:47] LABS: HEMATOCRIT 22 % (35-52); HEMOGLOBIN 7.9 g/dL (11.5-16.0); MEAN CORPUSCULAR HEMOGLOBIN 34 pg (25-34); MEAN CORPUSCULAR HGB CONC 35 g/dL (32-36); MEAN CORPUSCULAR VOLUME 95 fL (80-99); MEAN PLATELET VOLUME 10.3 fL (9.0-12.2); PLATELET COUNT 153 10^3/uL (130-400); WHITE BLOOD COUNT 5.8 10^3/uL (4.3-11.0)
[2022-06-29 05:55] LABS: ALBUMIN 2.2 GM/DL (3.2-4.5)
[2022-06-29 05:56] LABS: POTASSIUM 2.9 MMOL/L (3.6-5.0)
[2022-06-29 05:57] LABS: CALCIUM 9.1 MG/DL (8.5-10.1)
[2022-06-29 05:58] LABS: TOTAL PROTEIN 4.3 GM/DL (6.4-8.2)
[2022-06-29 06:00] LABS: BILIRUBIN,TOTAL 1.1 MG/DL (0.1-1.0)
[2022-06-29 06:02] LABS: CREATININE SERUM 0.4 MG/DL (0.60-1.30)
[2022-06-29 08:15] VITALS: BP 139/74
[2022-06-29] MEDS ORDERED: NS 100 ML (IVPB) BAG IV ONE (08:45)
[2022-06-29] MEDS ORDERED: HOLD METFORMIN - RECEIVED CONTRAST 20 ML VIAL IV SCH (08:45)
[2022-06-29] MEDS ORDERED: IOHEXOL 350 MG/ML 100 ML (OMNIPAQUE 350) VIAL IV ONE (08:45)
[2022-06-29] MEDS ORDERED: CATHETER FLUSH 10 ML SYR IV PRN (08:45)
[2022-06-29] MEDS: amLODIPine 2.5MG (NORVASC) TAB PO SCH (08:50)
[2022-06-29] MEDS: PANTOPRAZOLE 40 MG (PROTONIX) TAB PO SCH (08:50)
[2022-06-29] MEDS: AtorvaSTATin TABLET 10 MG TABLET PO SCH (08:50)
[2022-06-29] MEDS: DOCUSATE SODIUM 100 MG (COLACE) CAP PO SCH ×2 (08:50→19:32)
[2022-06-29] MEDS: DULoxetine 30 MG (CYMBALTA) CAP PO SCH (08:51)
[2022-06-29] MEDS: meTOprolol SUCCINATE 100 MG (TOPROL XL) TAB PO SCH ×2 (08:51→19:32)
[2022-06-29] MEDS: PREGABALIN 100 MG (LYRICA) CAPSULE PO SCH ×2 (08:53→19:32)
[2022-06-29] MEDS ORDERED: KCL 20 MEQ TAB (K-DUR) PO NR (09:00)
[2022-06-29] MEDS ORDERED: SODIUM CHLORIDE 3% 500 ML IV SCH (09:00)
--- NOTE | 2022-06-29 11:25 | Diagnostic Imaging Report ---
PROCEDURE: CT of the chest and pelvis with contrast and CT of the abdomen with and without contrast. TECHNIQUE: Precontrast acquisitions were acquired through the abdomen. Multiple contiguous axial images were obtained through the chest, abdomen and pelvis after administration of intravenous contrast. Auto Exposure Controls were utilized during the CT exam to meet ALARA standards for radiation dose reduction. INDICATION: Liver mass. COMPARISON: Correlation is made with the ultrasound performed of the liver one day earlier. FINDINGS: CT CHEST: No axillary lymphadenopathy is detected. There is some mild soft tissue fullness in the subcarinal location of the mediastinum, indeterminate. This measures 3.4 x 1.4 cm. No hilar lymphadenopathy is identified. There is a moderate-sized hiatal hernia. No pericardial or pleural fluid is detected. There appears to be some minimal scarring in the right lung apex. There is some scarring in the left lower lobe as well. There is a 5 mm nodule in the left lower lobe, indeterminate. Tiny approximately 2-3 mm nodule in the right lower lobe is seen. CT ABDOMEN AND PELVIS: There are numerous rounded solid-appearing masses throughout the liver, concerning for hepatic metastatic disease. The largest in the right lobe is approximately 3.7 cm. Gallbladder is surgically absent. There appears to be a necrotic hepatogastric node measuring 2.2 cm. Pancreas and spleen are unremarkable. No adrenal mass is identified. Kidneys are unremarkable. There is no hydronephrosis. The aorta is calcified but nonaneurysmal. No definite central retroperitoneal lymphadenopathy is seen. Bowel loops are normal in caliber. There is diverticulosis of the sigmoid, but no evidence of acute diverticulitis. There is no ascites. There is a large amount of artifact through the pelvis from patient's bilateral hip prostheses. The bladder is obscured by the artifact. No definite pelvic lymphadenopathy is detected. No acute bony abnormality is detected. IMPRESSION: 1. Innumerable solid-appearing masses throughout the liver, suggestive of hepatic metastatic disease. There also appears to be a necrotic hepatogastric lymph node. The site of primary malignancy is indeterminate. There also appears to be some fullness in the subcarinal region of the mediastinum, concerning for lymphadenopathy. The liver lesions would be amenable to percutaneous biopsy if clinically needed. Dictated by: Dictated on workstation # [id number]
[2022-06-29 11:49] VITALS: BP 140/66
[2022-06-29 16:19] VITALS: BP 159/18
[2022-06-29 19:14] VITALS: BP 140/83
[2022-06-29] MEDS: HYDROcodone/APAP 5 MG/325 MG (LORTAB) TAB PO PRN (19:32)
[2022-06-30] VITALS (7 sets, daily range): BP systolic 135–181; BP diastolic 65–79
[2022-06-30] MEDS: KCL 20 MEQ TAB (K-DUR) PO SCH (05:58)
[2022-06-30 06:35] LABS: POTASSIUM 2.6 MMOL/L (3.6-5.0)
[2022-06-30 06:36] LABS: CALCIUM 9.4 MG/DL (8.5-10.1)
[2022-06-30 06:40] LABS: CREATININE SERUM 0.41 MG/DL (0.60-1.30)
[2022-06-30 06:42] LABS: HEMATOCRIT 22 % (35-52); HEMOGLOBIN 7.9 g/dL (11.5-16.0); MEAN CORPUSCULAR HEMOGLOBIN 34 pg (25-34); MEAN CORPUSCULAR HGB CONC 35 g/dL (32-36); MEAN CORPUSCULAR VOLUME 95 fL (80-99); MEAN PLATELET VOLUME 10.4 fL (9.0-12.2); PLATELET COUNT 175 10^3/uL (130-400); WHITE BLOOD COUNT 5.9 10^3/uL (4.3-11.0)
[2022-06-30 07:02] LABS: INR 1.2 (0.8-1.4); PROTHROMBIN TIME PATIENT 15.9 SEC (12.2-14.7)
[2022-06-30] MEDS ORDERED: POTASSIUM CL 10MEQ/50ML IVPB 200 ML IV ONE (08:52)
[2022-06-30] MEDS: AtorvaSTATin TABLET 10 MG TABLET PO SCH (09:01)
[2022-06-30] MEDS: amLODIPine 2.5MG (NORVASC) TAB PO SCH (09:01)
[2022-06-30] MEDS: DOCUSATE SODIUM 100 MG (COLACE) CAP PO SCH ×2 (09:01→19:40)
[2022-06-30] MEDS: PREGABALIN 100 MG (LYRICA) CAPSULE PO SCH ×2 (09:01→19:40)
[2022-06-30] MEDS: PANTOPRAZOLE 40 MG (PROTONIX) TAB PO SCH (09:01)
[2022-06-30] MEDS: DULoxetine 30 MG (CYMBALTA) CAP PO SCH (09:02)
[2022-06-30] MEDS: meTOprolol SUCCINATE 100 MG (TOPROL XL) TAB PO SCH ×2 (09:02→19:40)
[2022-06-30] MEDS: HYDROcodone/APAP 5 MG/325 MG (LORTAB) TAB PO PRN (12:30)
--- NOTE | 2022-06-30 13:12 | Progress Note ---
Subjective Date Seen by a Provider: Jun 30, 2022 Time Seen by a Provider: 13:09 Subjective/Events-last exam Fwup hyponatremia, dehydration, weakness, recent C. diff colitis, anemia, HTN, constipation, liver lesions. Still weak and poor appetite. Objective Exam Vital Signs Date Time Temp Pulse Resp B/P (MAP) Pulse Ox O2 Delivery O2 Flow Rate FiO2 06/30/22 07:56 36.2 76 18 166/78 (107) 98 Room Air 06/30/22 03:36 36.8 98 18 150/77 (101) 99 Room Air 06/30/22 00:07 36.7 85 16 145/76 (99) 92 Room Air 06/29/22 19:35 Room Air 06/29/22 19:14 37.2 91 18 140/83 (102) 97 Room Air 06/29/22 16:19 36.6 66 19 159/18 (65) 97 Room Air I & O 06/30/22 07:00 Intake Total 1300 ml Output Total 2350 ml Balance -1050 ml Capillary Refill : Less Than 3 Seconds General Appearance: Mild Distress Respiratory: Lungs Clear Cardiovascular: Regular Rate, Rhythm Gastrointestinal: normal bowel sounds, soft, tenderness (RUQ) Extremity: Non Tender, No Calf Tenderness, No Pedal Edema Neurologic/Psychiatric: Alert, Oriented x3 Results Lab Laboratory Tests 06/30/22 06:00: White Blood Count 5.9, Red Blood Count 2.35L, Hemoglobin 7.9L, Hematocrit 22L, Mean Corpuscular Volume 95, Mean Corpuscular Hemoglobin 34, Mean Corpuscular Hemoglobin Concent 35, Red Cell Distribution Width 18.9H, Platelet Count 175, Mean Platelet Volume 10.4, Prothrombin Time 15.9H, INR Comment 1.2, Activated Partial Thromboplast Time 39H, Sodium Level 132L, Potassium Level 2.6L, Chloride Level 95L, Carbon Dioxide Level 25, Anion Gap 12, Blood Urea Nitrogen 3L, Creatinine 0.41L, Estimat Glomerular Filtration Rate 110, BUN/Creatinine Ratio 7, Glucose Level 109H, Calcium Level 9.4 Assessment/Plan Assessment/Plan Assess & Plan/Chief Complaint 1. Hyponatremia--improving after hypertonic saline 2. Acute Anemia--S/P transfusion, H/H improved, will need EGD and colonoscopy but will wait another 2-4 weeks due to recent C. Diff infection 3. Dehydration/Weakness/Anorexia--PT/OT started 4. Recent C. Diff infection--now with constipation--had BM today 5. Hypertension-improving with adding amlodopine 6. Elevated Ferritin and liver lesions--CT guided needle biopsy per radiology tomorrow, discussed with patient and that these look like mets 7. Hypokalemia--give IV potassium PIETRO TURK DO Jun 30, 2022 13:12
[2022-06-30] MEDS: POTASSIUM CL 10MEQ/50ML IVPB 50 ML IV SCH ×2 (14:03→14:04)
[2022-06-30] MEDS ORDERED: ACETAMINOPHEN 325 MG TABLET PO PRN (19:45)
[2022-07-01] VITALS (11 sets, daily range): BP systolic 142–161; BP diastolic 68–90
[2022-07-01 01:17] LABS: BILIRUBIN,URINE NEGATIVE (NEGATIVE); CLARITY,URINE CLEAR; COLOR,URINE DARK YELLOW; GLUCOSE, URINE (UA) TRACE (NEGATIVE); KETONES,URINE NEGATIVE (NEGATIVE); LEUKOCYTE ESTERASE ,URINE NEGATIVE (NEGATIVE); NITRITE,URINE NEGATIVE (NEGATIVE); PH,URINE 6.5 (5-9); PROTEIN,URINE NEGATIVE (NEGATIVE)
[2022-07-01 01:39] LABS: BACTERIA,URINE NEGATIVE /HPF; RBC,URINE 0 /HPF; WBC,URINE 0-2 /HPF
[2022-07-01 01:40] LABS: SQUAMOUS EPITHELIAL CELL,UR 0-2 /HPF
[2022-07-01] MEDS: KCL 20 MEQ TAB (K-DUR) PO SCH (05:52)
[2022-07-01 06:50] LABS: CREATININE SERUM 0.39 MG/DL (0.60-1.30); POTASSIUM 3.1 MMOL/L (3.6-5.0)
[2022-07-01] MEDS ORDERED: NS IV 1000 ML 1,000 ML IV STA (08:46)
[2022-07-01] MEDS ORDERED: fentaNYL INJ 100 MCG/2 ML AMP IVP ONE (09:00)
[2022-07-01] MEDS ORDERED: MIDAZOLAM 2 MG/2 ML (VERSED) VIAL IVP ONE (09:00)
[2022-07-01] MEDS ORDERED: LIDOCAINE 1% INJ 30 ML (XYLOCAINE) VIAL INJ ONE (09:00)
--- NOTE | 2022-07-01 10:53 | Diagnostic Imaging Report ---
INDICATION: Liver lesions. Patient presents for CT-guided biopsy. TECHNIQUE: All CT scans use one or more of the following dose optimizing techniques: automated exposure control, MA and/or KvP adjustment based on patient size and exam type or iterative reconstruction. Patient brought to the CT suite and placed on table in the supine position. Axial imaging through the liver was performed to evaluate appropriate entry site. The procedure was performed utilizing conscious sedation with radiology nursing and constant patient monitoring. Patient was given a total of 50 mcg of fentanyl intravenously and 1 mg of Versed intravenously. Total procedure time approximately 6 minutes. The right abdomen was prepped and draped in usual sterile fashion. Small amount of 1% lidocaine was utilized for local anesthesia. A 18-gauge coaxial Temno biopsy needle was advanced and placed with its tip along the margin of the dominant low-attenuation lesion in the inferior right lobe of liver. Upon inner stylet removal, yellow serous fluid was coming up through the needle into the hub. Therefore, approximately 3 mL of yellowish serous fluid was aspirated from the lesion. This will be sent to cytology. Next, 4 core biopsies of the lesion were obtained utilizing 18-gauge Temno device. A blood patch was injected during needle removal. Hemostasis was obtained using manual compression. Postprocedure imaging shows no complicating features. Patient tolerated the procedure well and left the department in stable condition. IMPRESSION: Successful CT-guided right lobe liver mass biopsy, utilizing conscious sedation. Pathology results are currently pending. Dictated by: Dictated on workstation # [id number]
[2022-07-01] MEDS: AtorvaSTATin TABLET 10 MG TABLET PO SCH (11:03)
[2022-07-01] MEDS: DOCUSATE SODIUM 100 MG (COLACE) CAP PO SCH ×2 (11:04→22:16)
[2022-07-01] MEDS: PREGABALIN 100 MG (LYRICA) CAPSULE PO SCH ×2 (11:04→20:43)
[2022-07-01] MEDS: meTOprolol SUCCINATE 100 MG (TOPROL XL) TAB PO SCH ×2 (11:04→20:43)
[2022-07-01] MEDS: amLODIPine 2.5MG (NORVASC) TAB PO SCH (11:04)
[2022-07-01] MEDS: DULoxetine 30 MG (CYMBALTA) CAP PO SCH (11:04)
[2022-07-01] MEDS: PANTOPRAZOLE 40 MG (PROTONIX) TAB PO SCH (11:04)
--- NOTE | 2022-07-01 11:13 | Pre-Op Note & Conscious Sedat ---
Pre-Operative Progress Note Date of Available H&P: Jul 01, 2022 Date H&P Reviewed: Jul 01, 2022 Time H&P Reviewed: 09:00 Pre-Op Diagnosis: liver mass Conscious Sedation Pre-Proced Time 09:00 ASA Score 2 For ASA 3 and 4: Consider anesthesia and medical clearance. Also, for patients with a history of failed moderate sedation consider anesthesia. Airway Lungs Heart ASA score ASA 1: a normal healthy patient ASA 2: a patient with a mild systemic disease (mid diabetes, controlled hypertension, obesity ASA 3: a patient with a severe systemic disease that limits activity (angina, COPD, prior Myocardial infarction) ASA 4: a patient with an incapacitating disease that is a constant threat to life (CHF, renal failure) ASA 5: a moribund patient not expected to survive 24 hrs. (ruptured aneurysm) ASA 6: a declared brain- patient whose organs are being harvested. For emergent operations, add the letter E after the classification Mallampati Classification Grade 2 Sedation Plan Analgesia, Amnesia, Plan communicated to team members, Discussed options with patient/fam, Discussed risks with patient/fam The patient is an appropriate candidate to undergo the planned procedure, sedation, and anesthesia. The patient immediately re-assessed prior to indication. JULIANA CMAERON MD Jul 01, 2022 11:13
--- NOTE | 2022-07-01 12:08 | Progress Note ---
Subjective Date Seen by a Provider: Jul 01, 2022 Time Seen by a Provider: 12:05 Subjective/Events-last exam Fwup hyponatremia, dehydration, weakness, recent C. diff colitis, anemia, HTN, constipation, liver lesions. Had liver biopsy this morning. Discussed going home but concerned because is still so weak. Objective Exam Vital Signs Date Time Temp Pulse Resp B/P (MAP) Pulse Ox O2 Delivery O2 Flow Rate FiO2 07/01/22 11:38 36.2 86 18 161/84 (109) 99 Room Air 07/01/22 10:49 80 18 149/78 (101) 95 Room Air 07/01/22 10:34 36.7 83 18 151/68 (95) 97 Room Air 07/01/22 10:19 36.9 83 18 151/68 (95) 96 Room Air 07/01/22 09:45 82 18 147/75 100 Nasal Cannula 2.00 07/01/22 09:40 86 16 154/77 99 Nasal Cannula 2.00 07/01/22 07:13 36.9 81 18 145/83 (103) 97 Room Air 07/01/22 03:30 36.4 85 18 159/82 (107) 97 Room Air 06/30/22 23:03 36.0 80 18 135/65 (88) 96 Room Air 06/30/22 20:20 37.2 06/30/22 20:20 37.2 06/30/22 19:43 Room Air 06/30/22 19:40 38.6 06/30/22 19:34 38.6 98 16 150/72 (98) 94 Room Air 06/30/22 16:16 37.0 87 16 181/79 (113) 97 Room Air I & O 07/01/22 07:00 Intake Total 1110 ml Output Total 750 ml Balance 360 ml Capillary Refill : Less Than 3 Seconds General Appearance: No Apparent Distress Neck: Supple Respiratory: Lungs Clear Cardiovascular: Regular Rate, Rhythm Gastrointestinal: normal bowel sounds, soft Extremity: Non Tender, No Calf Tenderness, No Pedal Edema Neurologic/Psychiatric: Alert, Oriented x3 Results Lab Laboratory Tests 07/01/22 01:05: Urine Color DARK YELLOW, Urine Clarity CLEAR, Urine pH 6.5, Urine Specific [place] 1.020, Urine Protein NEGATIVE, Urine Glucose (UA) TRACEH, Urine Ketones NEGATIVE, Urine Nitrite NEGATIVE, Urine Bilirubin NEGATIVE, Urine Urobilinogen >=8.0, Urine Leukocyte Esterase NEGATIVE, Urine RBC (Auto) NEGATIVE, Urine RBC 0, Urine WBC 0-2, Urine Squamous Epithelial Cells 0-2, Urine Crystals NONE, Urine Bacteria NEGATIVE, Urine Casts NONE, Urine Mucus NEGATIVE, Urine Culture Indicated NO 07/01/22 06:08: Sodium Level 128L, Potassium Level 3.1L, Chloride Level 90L, Carbon Dioxide L evel 27, Anion Gap 11, Blood Urea Nitrogen 4L, Creatinine 0.39L, Estimat Glomerular Filtration Rate 112, BUN/Creatinine Ratio 10, Glucose Level 95, Calcium Level 10.0 Assessment/Plan Assessment/Plan Assess & Plan/Chief Complaint 1. Hyponatremia--dropped from yesterday but stable 2. Acute Anemia--S/P transfusion, H/H improved, will need EGD and colonoscopy but will wait another 2-4 weeks due to recent C. Diff infection 3. Dehydration/Weakness/Anorexia--PT/OT started, will do urgent Rehab evaluation to see if that is an option otherwise will DC home with homehealth 4. Recent C. Diff infection--now with constipation--having small soft BMs since stool softener started 5. Hypertension-improving with adding amlodopine 6. Elevated Ferritin and liver lesions--CT guided needle biopsy per radiology done this morning, discussed with patient and that these look like mets--will discuss pathology results in outpatient fwup 7. Hypokalemia--improving, give more IV potassium now PIETRO TURK DO Jul 01, 2022 12:08
[2022-07-01] MEDS: POTASSIUM CL 10MEQ/50ML IVPB 50 ML IV SCH ×4 (12:25→15:39)
[2022-07-01] MEDS ORDERED: POTA-169 PO (15:38)
[2022-07-01] MEDS ORDERED: PREG100C PO (15:38)
[2022-07-01] MEDS ORDERED: amLODIPine 2.5MG (NORVASC) TAB PO NR (16:15)
[2022-07-01] MEDS: HYDROcodone/APAP 5 MG/325 MG (LORTAB) TAB PO PRN (23:09)
[2022-07-02 03:01] VITALS: BP 145/82
[2022-07-02 04:26] LABS: HEMATOCRIT 24 % (35-52); HEMOGLOBIN 8.4 g/dL (11.5-16.0); MEAN CORPUSCULAR HEMOGLOBIN 33 pg (25-34); MEAN CORPUSCULAR HGB CONC 35 g/dL (32-36); MEAN CORPUSCULAR VOLUME 95 fL (80-99); MEAN PLATELET VOLUME 10.1 fL (9.0-12.2); PLATELET COUNT 118 10^3/uL (130-400); WHITE BLOOD COUNT 8.1 10^3/uL (4.3-11.0)
[2022-07-02 04:35] LABS: CALCIUM 10.2 MG/DL (8.5-10.1); CREATININE SERUM 0.41 MG/DL (0.60-1.30); POTASSIUM 3.6 MMOL/L (3.6-5.0)
[2022-07-02] MEDS: KCL 20 MEQ TAB (K-DUR) PO SCH (05:29)
[2022-07-02 07:11] VITALS: BP 136/86
[2022-07-02] MEDS: amLODIPine 5 MG (NORVASC) TAB PO SCH (08:49)
[2022-07-02] MEDS: DULoxetine 30 MG (CYMBALTA) CAP PO SCH (08:49)
[2022-07-02] MEDS: AtorvaSTATin TABLET 10 MG TABLET PO SCH (08:49)
[2022-07-02] MEDS: meTOprolol SUCCINATE 100 MG (TOPROL XL) TAB PO SCH ×2 (08:49→20:23)
[2022-07-02] MEDS: PREGABALIN 100 MG (LYRICA) CAPSULE PO SCH ×2 (08:49→20:23)
[2022-07-02] MEDS: PANTOPRAZOLE 40 MG (PROTONIX) TAB PO SCH (08:50)
[2022-07-02] MEDS: DOCUSATE SODIUM 100 MG (COLACE) CAP PO SCH ×2 (08:50→19:41)
[2022-07-02] MEDS ORDERED: SODIUM CHLORIDE 1 GM TABLET PO ONE (09:00)
--- NOTE | 2022-07-02 09:14 | Physical Therapy Evaluation ---
PT Evaluation-General Medical Diagnosis Admission Date Jun 25, 2022 at 12:00 Medical Diagnosis: C-diff Onset Date: Jun 25, 2022 Therapy Diagnosis Therapy Diagnosis: general weakness / debility Precautions Precautions/Isolations: Standard Precautions, Contact/Enteric Isolation Weight Bear Status Weight Bearing/Tolerated Weight Bearing/Tolerated Referral Physician: Joanne Reason for Referral: Evaluation/Treatment Medical History Pertinent Medical History: DM, Hypothroidism Reviewed History: Yes Social History Home: Single Level Current Living Status: Spouse Entry Into Home: Stairs With Railing PT Steps Into Home: 2 Prior Prior Level of Function SCALE: Activities may be completed with or without assistive devices. 0-Olsqpzosnz-xxwevtw completes the activity by him/herself with no assistance from a helper. 5-Set-up or Clean-up Assistance-helper sets up or cleans up; patient completes activity. [place] assists only prior to or following the activity. 4-Supervision or Touching Assistance-helper provides verbal cues and/or touching/steadying and/or contact guard assistance as patient completes activity. Assistance may be provided throughout the activity or intermittently. 3-Partial/Moderate Assistance-helper does LESS THAN HALF the effort. [place] lifts, holds or supports trunk or limbs, but provides less than half the effort. 2-Substantial/Maximal Assistance-helper does MORE THAN HALF the effort. [place] lifts or holds trunk or limbs and provides more than half the effort. 9-Ieechjgbe-oevnvr does ALL the effort. Patient does none of the effort to complete the activity. Or, the assistance of 2 or more helpers is required for the patient to complete the activity. If activity was not attempted, code reason: 7-Patient Refused. 9-Not Applicable-not attempted and the patient did not perform the activity before the current illness, exacerbation or injury. 10-Not Attempted due to Environmental Limitations-(lack of equipment, weather restraints, etc.). 88-Not Attempted due to Medical Conditions or Safety Concerns. Bed Mobility: 6 Transfers (B,C,W/C): 6 Gait: 6 Stairs: 6 Indoor Mobility (Ambulation): Independent Stairs: Independent Prior Devices Use: Walker (bilateral THR) Pt was fully (I) prior to getting sick; then continued to go downhill to where she was weak enough she required a walker PT Evaluation-Current Subjective Pt sitting up in chair with present at bedside, reports her back is sore, pain unrated. She states she feels as if she is too weak to return home in this state. Pt and curious as to what ARU entails Pt/Family Goals return home Objective Patient Orientation: Person, Place ROM/Strength ROM Upper Extremities WFL ROM Lower Extremities WFL Strength Lower Extremities grossly 3+/5 with functional mobility Integumentary/Posture Integumentary refer to nursing notes Bowel Incontinence: No Bladder Incontinence: No Neuromuscular (Tone, Coordination, Reflexes) grossly intact Sensory Vision: Functional Hearing: Functional Transfers Sit to Stand (QC): 6 Toilet Transfer (QC): 6 Gait Anticipated Mode of Locomotion: Walk Walk 150 ft (QC): 4 Gait Assistive Device: FWW Comments/Gait Description Pt ambulates 150' SBA/CGA, she takes several standing rest breaks and tends to self limit ambulation. Several times she states, "I just need to sit," "I am short of breath," "I just cannot do this." Pt able to complete with seated rest and encouragement from PT Treatment Began evaluation getting pt up from chair, pt then had to use restroom, so PT stopped evaluation and returned 20m later. Then pt completed ambulation. Assessment/Needs Pt is a 62 year old female who presents with significantly decreased activity tolerance, decreased strength, increased balance deficits, and decreased functional mobility which increase her risk of falls. Pt would benefit from skilled PT to address limitations mentioned and ensure safety upon DC from hospital. Rehab Potential: Good PT Short Term Goals Short Term Goals Time Frame: Jul 16, 2022 Sit to stand: 6 Walk 10 feet: 6 Walk 50 feet with two turns: 6 Walk 150 feet: 6 Walking 10ft on uneven surface: 6 1 step (curb): 6 4 steps: 6 PT Land Acquisition Analyst Goals Assisted Goals PT Land Acquisition Analyst Goals Time Frame: Jul 09, 2022 Roll Left & Right (QC): 6 Sit to Lying (QC): 6 Lying-Sitting on Side/Bed(QC): 6 Sit to Stand (QC): 6 Chair/Stt-jq-Neior Xfer(QC): 6 Toilet Transfer (QC): 6 Walk 10 feet (QC): 6 Walk 50ft with 2 Turns (QC): 6 Walk 150 ft (QC): 6 PT Plan Problem List Problem List: Activity Tolerance, Functional Strength, Safety, Balance, Gait, Transfer, Bed Mobility, ROM Treatment/Plan Treatment Plan: Continue Plan of Care Treatment Plan: Education, Functional Activity Alla, Functional Strength, Gait, Safety, Therapeutic Exercise, Transfers Treatment Duration: Jul 09, 2022 Frequency: 6 times per week Estimated Hrs Per Day: .25 hour per day Patient and/or Family Agrees t: Yes Time Time In: 857 Time Out: 952 DATE: Jul 02, 2022 Total Billed Treatment Time: 35 Total Billed Treatment 1 visit EVMOD ([id number]) (20') FA ([phone]) (15') BONY MACDONALD PT Jul 02, 2022 09:14
--- NOTE | 2022-07-02 09:31 | Progress Note ---
Subjective Subjective Date Seen by Provider: Jul 02, 2022 Time Seen by Provider: 09:20 Pt is a 62 y/o female who is a clinic patient of Dr. Garcia for whom I am communications technologist today. Mrs. Hollis was admitted to the hospital with DX of Cdiff, constipation, weakness, found to be profoundly hyponatremic and subsequently found to have masses on her liver. This morning she is complaining of being extremely fatigued, feeling weak, and having diarrhea. Review of Systems General: No Chills; Fatigue, Malaise HEENT: No Head Aches Pulmonary: No Dyspnea, No Cough Cardiovascular: No: Chest Pain, Palpitations Gastrointestinal: No: Nausea, Abdominal Pain Genitourinary: No Dysuria Neurological: Weakness; No: Confusion Objective Exam Vital Signs Vital Signs Date Time Temp Pulse Resp B/P (MAP) Pulse Ox O2 Delivery O2 Flow Rate FiO2 07/02/22 08:00 97 Room Air 07/02/22 07:11 36.4 88 18 136/86 (103) 97 Room Air 07/02/22 03:01 35.9 84 16 145/82 (103) 98 Room Air 07/01/22 23:07 36.5 76 16 142/90 (107) 97 Room Air 07/01/22 20:49 Room Air 07/01/22 19:10 36.9 91 18 156/86 (109) 96 Room Air 07/01/22 15:52 36.7 89 18 156/82 (106) 97 Room Air 07/01/22 11:38 36.2 86 18 161/84 (109) 99 Room Air 07/01/22 10:49 80 18 149/78 (101) 95 Room Air 07/01/22 10:34 36.7 83 18 151/68 (95) 97 Room Air 07/01/22 10:19 36.9 83 18 151/68 (95) 96 Room Air 07/01/22 09:45 82 18 147/75 100 Nasal Cannula 2.00 07/01/22 09:40 86 16 154/77 99 Nasal Cannula 2.00 I & O 07/02/22 07:00 Intake Total 1040 ml Output Total 1000 ml Balance 40 ml General Appearance: Thin, Other (no distress, but obviously fatigued) HEENT: PERRL/EOMI, Other (mask obsucres oral exam) Neck: Full Range of Motion, Supple Respiratory: Chest Non Tender, Lungs Clear, Normal Breath Sounds, No Accessory Muscle Use, No Respiratory Distress Cardiovascular: Regular Rate, Rhythm, No Edema, Normal Peripheral Pulses Gastrointestinal: Normal Bowel Sounds, Soft, Other (palpable hard liver in RUQ) Extremity: Non Tender, No Calf Tenderness, No Pedal Edema Neurologic/Psychiatric: Alert, Oriented x3, Other (flat affect) Skin: Normal Color, Warm/Dry Lymphatic: Other (shotty lymphadenopathy in neck) Results Lab Laboratory Tests 07/02/22 04:14: White Blood Count 8.1, Red Blood Count 2.56L, Hemoglobin 8.4L, Hematocrit 24L, Mean Corpuscular Volume 95, Mean Corpuscular Hemoglobin 33, Mean Corpuscular Hemoglobin Concent 35, Red Cell Distribution Width 19.3H, Platelet Count 118L, Mean Platelet Volume 10.1, Sodium Level 124*L, Potassium Level 3.6, Chloride Level 88L, Carbon Dioxide Level 23, Anion Gap 13, Blood Urea Nitrogen 6L, Creatinine 0.41L, Estimat Glomerular Filtration Rate 110, BUN/Creatinine Ratio 15, Glucose Level 80, Calcium Level 10.2H Assessment/Plan Assessment/Plan Assessment and Plan Hepatic Masses - suspected metastatic disease Necrotic Lymph node in abdomen Nodules/masses in lungs Hyponatremia Hypochloremia Hypercalcemia Hypomagnesemia Hyperbilirubinemia Hypoalbuminemia Acute Thrombocytopenia Acute anemia Hx of CDiff infection Diarrhea (after treatment for constipation Hypertension Hypokalemia Severe weakness Underweight Hepatic Masses - suspected metastatic disease with Necrotic Lymph node in abdomen and Nodules/masses in lungs - pt is status post biopsy by Interventional Radiologist - wait for pathology report. Hyponatremia, Hypochloremia, Hypomagnesemia, Hypokalemia - replace sodium today with 1/2 gram tab, repeat Na level later today, closely monitor blood pressures - replace mag today with IV supplementation - potassium stable today Hypercalcemia - monitor labs Hyperbilirubinemia - repeat labs in the morning and will continue with supportive care Hypoalbuminemia - push higher protein foods, added ensure high protein to meals, encouraged pt to intake this supplement Acute anemia and Acute Thrombocytopenia - repeat labs in morning - pt is status post blood transfusion with improvement in H and H. - plts acutely lower today compared to previously, monitor plts Hx of CDiff infection pt had constipation, now Diarrhea (after treatment for constipation) - will give probiotics, stop stool softeners Hypertension - pt was started on amlodipine - monitor bp's since we have added sodium tabs. Severe weakness - PT working with Alea this morning - she was very slow in her movements, wanting to stop and sit during her walk, wanted to go straight back to bed, I suspect some of this may be due to her hyponatremia - will monitor her symptoms as she has improved Sodium levels. Underweight I believe pt qualifies for Inpt rehab - hopefully will get some direction as to admission today or tomorrow. YAQUELIN BYRD MD Jul 02, 2022 09:31
[2022-07-02 09:41] LABS: TOTAL PROTEIN 4.3 GM/DL (6.4-8.2)
[2022-07-02 09:42] LABS: BILIRUBIN,TOTAL 1.3 MG/DL (0.1-1.0)
[2022-07-02 09:46] LABS: BILIRUBIN,DIRECT 0.6 MG/DL (0.0-0.3); BILIRUBIN,INDIRECT 0.7 MG/DL
[2022-07-02 09:47] LABS: MAGNESIUM 1.2 MG/DL (1.6-2.4)
[2022-07-02] MEDS: LACTOBACILLUS ACIDOPHILUS (PROBIOTIC) CAPSULE PO SCH ×3 (10:41→17:06)
[2022-07-02 11:17] VITALS: BP 115/71
[2022-07-02 16:00] VITALS: BP 126/78
[2022-07-02 19:20] VITALS: BP 129/86
[2022-07-02] MEDS: HYDROcodone/APAP 5 MG/325 MG (LORTAB) TAB PO PRN (20:26)
[2022-07-02 23:27] VITALS: BP 134/67
[2022-07-03 03:47] VITALS: BP 166/77
[2022-07-03] MEDS: KCL 20 MEQ TAB (K-DUR) PO SCH (06:22)
[2022-07-03 07:41] VITALS: BP 141/74
--- NOTE | 2022-07-03 08:34 | Progress Note ---
Subjective Subjective Date Seen by Provider: Jul 03, 2022 Time Seen by Provider: 08:20 Pt is a 62 y/o female who is a clinic patient of Dr. Garcia for whom I am inside solar sales consultant today. Mrs. Hollis was admitted to the hospital with DX of Cdiff, constipation, weakness, found to be profoundly hyponatremic and subsequently found to have masses on her liver. This morning she is still sleeping, when asked if she is still having diarrhea, she denies diarrhea. She complains of being fatigued/weak. Review of Systems General: No Chills; Fatigue, Malaise HEENT: No Head Aches Pulmonary: No Dyspnea, No Cough Cardiovascular: No: Chest Pain, Palpitations Gastrointestinal: Diarrhea (intermittent); No: Nausea, Abdominal Pain Genitourinary: No Dysuria Neurological: Weakness; No: Confusion Objective Exam Vital Signs Vital Signs Date Time Temp Pulse Resp B/P (MAP) Pulse Ox O2 Delivery O2 Flow Rate FiO2 07/03/22 07:41 36.4 86 18 141/74 (96) 99 Room Air 0.00 0.00 07/03/22 03:47 35.8 96 16 166/77 (106) 97 Room Air 07/02/22 23:27 35.9 91 16 134/67 (89) 95 Room Air 07/02/22 20:00 97 Room Air 07/02/22 19:20 36.6 92 20 129/86 (100) 93 Room Air 07/02/22 16:00 36.6 83 18 126/78 (94) 96 Room Air 07/02/22 11:17 36.1 84 16 115/71 (86) 94 Room Air I & O 07/03/22 07:00 Intake Total 1300 ml Output Total 550 ml Balance 750 ml General Appearance: Thin, Other (no distress, but obviously fatigued) HEENT: PERRL/EOMI, Other (dry mouth) Neck: Full Range of Motion, Supple Respiratory: Chest Non Tender, Lungs Clear, Normal Breath Sounds, No Accessory Muscle Use, No Respiratory Distress Cardiovascular: Regular Rate, Rhythm, No Edema, Normal Peripheral Pulses Gastrointestinal: Normal Bowel Sounds, Soft, Other (palpable hard liver in RUQ) Extremity: Non Tender, No Calf Tenderness, No Pedal Edema Neurologic/Psychiatric: Alert, Oriented x3 (but sleepy), Other (flat affect) Skin: Normal Color, Warm/Dry Lymphatic: Other (shotty lymphadenopathy in neck) Results Lab Microbiology 07/02/22 C. difficile GDH Antigen & Toxins - Final, Complete Assessment/Plan Assessment/Plan Assessment and Plan Hepatic Masses - suspected metastatic disease Necrotic Lymph node in abdomen Nodules/masses in lungs Hyponatremia Hypochloremia Hypercalcemia Hypomagnesemia Hyperbilirubinemia Hypoalbuminemia Acute Thrombocytopenia Acute anemia Hx of CDiff infection Diarrhea (after treatment for constipation Hypertension Hypokalemia Severe weakness Underweight Hepatic Masses - suspected metastatic disease with Necrotic Lymph node in abdomen and Nodules/masses in lungs - pt is status post biopsy by Interventional Radiologist - wait for pathology report. Hyponatremia, Hypochloremia, Hypomagnesemia, Hypokalemia - replace sodium today with 1/2 gram tab, repeat Na level later today, closely monitor blood pressures - replace mag today with IV supplementation - potassium stable on last labs Hypercalcemia - monitor labs Hyperbilirubinemia - repeat labs in the morning and will continue with supportive care - stop statin therapy at this time Hypoalbuminemia - push higher protein foods, added ensure high protein to meals, encouraged pt to intake this supplement Acute anemia and Acute Thrombocytopenia - repeat labs in morning - pt is status post blood transfusion with improvement in H and H. - plts acutely lower today compared to previously, monitor plts Hx of CDiff infection pt had constipation, now Diarrhea (after treatment for constipation) - will give probiotics, stop stool softeners - indeterminate Cdiff - will treat with oral vancomycin for now, monitor symptoms, pt is on contact precaution - once infection control returns, will have discussion about need for treatment versus monitoring, but due to her indeterminant cdiff toxin report and positive GDH, will err on side of caution and treatment will be initiated today. - note should be made, this scientific writer was NEVER NOTIFIED of the following results: C DIFFICILE AG + TOXIN A/B. Final Verified 07/02/22- 1142Final Source: STOOL Order Location: Fourth Floor-Med/Surg RESULTS INDETERMINANT. C DIFF TOXIN NEGATIVE BUT GDH AG POSITIVE CALLED CORRECTED REPORT TO JUSTIN ANDREWS 07/02/22 11:40 VOALTED TO IZABELA CASTELLANOS BY Betty DAWSON Hypertension - pt was started on amlodipine - monitor bp's since we have added sodium tabs. Severe weakness - anticipate pt will qualify for IRF Underweight I believe pt qualifies for Inpt rehab - hopefully will get some direction as to admission today or tomorrow. YAQUELIN BYRD MD Jul 03, 2022 08:34
[2022-07-03] MEDS: PREGABALIN 100 MG (LYRICA) CAPSULE PO SCH ×2 (09:32→20:15)
[2022-07-03] MEDS: MAGNESIUM 1 GM/100 ML IVPB 100 ML IV SCH ×3 (09:32→10:52)
[2022-07-03] MEDS: VANCOMYCIN 125 MG CAPSULE PO SCH ×5 (09:33→23:37)
[2022-07-03] MEDS: LACTOBACILLUS ACIDOPHILUS (PROBIOTIC) CAPSULE PO SCH ×4 (09:34→18:31)
[2022-07-03] MEDS: DULoxetine 30 MG (CYMBALTA) CAP PO SCH (09:34)
[2022-07-03] MEDS: meTOprolol SUCCINATE 100 MG (TOPROL XL) TAB PO SCH ×2 (09:34→20:15)
[2022-07-03] MEDS: PANTOPRAZOLE 40 MG (PROTONIX) TAB PO SCH (09:34)
[2022-07-03] MEDS: amLODIPine 5 MG (NORVASC) TAB PO SCH (09:34)
[2022-07-03 11:28] VITALS: BP 149/69
[2022-07-03 15:28] VITALS: BP 147/71
[2022-07-03] MEDS ORDERED: NS IV 1000 ML 1,000 ML ONE (18:21)
[2022-07-03] MEDS: NS IV 1000 ML 1,000 ML IV SCH (18:23)
[2022-07-03 18:32] LABS: HEMATOCRIT 27 % (35-52); HEMOGLOBIN 9.3 g/dL (11.5-16.0); MEAN CORPUSCULAR HEMOGLOBIN 33 pg (25-34); MEAN CORPUSCULAR HGB CONC 35 g/dL (32-36); MEAN CORPUSCULAR VOLUME 95 fL (80-99); MEAN PLATELET VOLUME 10.9 fL (9.0-12.2); PLATELET COUNT 216 10^3/uL (130-400); WHITE BLOOD COUNT 12.2 10^3/uL (4.3-11.0)
--- NOTE | 2022-07-03 18:37 | Diagnostic Imaging Report ---
HISTORY: Altered mental status. COMPARISON: 05/25/2019. TECHNIQUE: Frontal view of the chest. FINDINGS: Lung volumes are large. No consolidation is seen. There is no pleural effusion or pneumothorax. The cardiac silhouette is normal in size. Aeration is markedly improved compared to April 2019. IMPRESSION: Large lung volumes with no acute pulmonary abnormality seen. Dictated by: Dictated on workstation # [id number]
[2022-07-03 18:56] LABS: ALBUMIN 2.1 GM/DL (3.2-4.5); POTASSIUM 3.7 MMOL/L (3.6-5.0)
[2022-07-03 18:57] LABS: CALCIUM 12.2 MG/DL (8.5-10.1)
[2022-07-03 18:59] LABS: TOTAL PROTEIN 4.2 GM/DL (6.4-8.2)
[2022-07-03 19:02] LABS: CREATININE SERUM 0.48 MG/DL (0.60-1.30)
[2022-07-03] MEDS ORDERED: SODIUM CHLORIDE 1 GM TABLET PO ONE (19:15)
[2022-07-03] MEDS ORDERED: FUROSEMIDE 40 MG/4 ML INJ (LASIX) IVP ONE (19:15)
[2022-07-03 19:49] VITALS: BP 138/64
[2022-07-03 23:27] VITALS: BP 145/70
[2022-07-04] MEDS: KCL 20 MEQ TAB (K-DUR) PO SCH (05:23)
[2022-07-04] MEDS: NS IV 1000 ML 1,000 ML IV SCH (05:23)
[2022-07-04] MEDS: VANCOMYCIN 125 MG CAPSULE PO SCH ×4 (05:25→23:47)
[2022-07-04 08:26] LABS: HEMATOCRIT 26 % (35-52); HEMOGLOBIN 8.9 g/dL (11.5-16.0); MEAN CORPUSCULAR HEMOGLOBIN 33 pg (25-34); MEAN CORPUSCULAR HGB CONC 34 g/dL (32-36); MEAN CORPUSCULAR VOLUME 97 fL (80-99); MEAN PLATELET VOLUME 10.9 fL (9.0-12.2); PLATELET COUNT 182 10^3/uL (130-400); WHITE BLOOD COUNT 8.6 10^3/uL (4.3-11.0)
[2022-07-04 08:53] LABS: CALCIUM 12.6 MG/DL (8.5-10.1); CREATININE SERUM 0.47 MG/DL (0.60-1.30); MAGNESIUM 1.6 MG/DL (1.6-2.4)
[2022-07-04 08:55] VITALS: BP 150/81
[2022-07-04] MEDS ORDERED: IBUPROFEN TABLET 200 MG TAB PO PRN (09:00)
--- NOTE | 2022-07-04 09:33 | Physical Therapy Daily Note ---
PT Daily Note-Current Subjective Patient is very lethargic. Physician present. Pain Section J - Health Conditions 1. Rarely or not at all 2. Occasionally 3. Frequently 4. Almost constantly 8. Unable to answer Pain Effect on Sleep: 1 Pain Interference with Therapy: 1 Pain Interference w/Day-to-Day: 1 Mental Status Patient Orientation: Person Attachments: IV Transfers SCALE: Activities may be completed with or without assistive devices. 7-Cswqitmufp-djmbmxy completes the activity by him/herself with no assistance from a helper. 5-Set-up or Clean-up Assistance-helper sets up or cleans up; patient completes activity. [place] assists only prior to or following the activity. 4-Supervision or Touching Assistance-helper provides verbal cues and/or touching/steadying and/or contact guard assistance as patient completes activity. Assistance may be provided throughout the activity or intermittently. 3-Partial/Moderate Assistance-helper does LESS THAN HALF the effort. [place] lifts, holds or supports trunk or limbs, but provides less than half the effort. 2-Substantial/Maximal Assistance-helper does MORE THAN HALF the effort. [place] lifts or holds trunk or limbs and provides more than half the effort. 2-Pcugvityp-gdqwwz does ALL the effort. Patient does none of the effort to complete the activity. Or, the assistance of 2 or more helpers is required for the patient to complete the activity. If activity was not attempted, code reason: 7-Patient Refused. 9-Not Applicable-not attempted and the patient did not perform the activity before the current illness, exacerbation or injury. 10-Not Attempted due to Environmental Limitations-(lack of equipment, weather restraints, etc.). 88-Not Attempted due to Medical Conditions or Safety Concerns. Lying to Sitting/Side of Bed(Q: 3 Sit to Stand (QC): 3 Chair/Bda-vk-Ftgcy Xfer(QC): 3 Weight Bearing Weight Bearing/Tolerated Weight Bearing/Tolerated Gait Training Distance: 10' Walk 10 feet (QC): 3 Gait Assistive Device: FWW Assessment Patient up in recliner with breakfast in situ. Patient continues to be lethargic. Chair alarm activated. Increase activity as tolerated by patient. PT Short Term Goals Short Term Goals Time Frame: Jul 16, 2022 Sit to stand: 6 Walk 10 feet: 6 Walk 50 feet with two turns: 6 Walk 150 feet: 6 Walking 10ft on uneven surface: 6 1 step (curb): 6 4 steps: 6 PT Geospatial Technologist Goals Residential Goals PT Residential Goals Time Frame: Jul 09, 2022 Roll Left & Right (QC): 6 Sit to Lying (QC): 6 Lying-Sitting on Side/Bed(QC): 6 Sit to Stand (QC): 6 Chair/Iku-jl-Yinuj Xfer(QC): 6 Toilet Transfer (QC): 6 Walk 10 feet (QC): 6 Walk 50ft with 2 Turns (QC): 6 Walk 150 ft (QC): 6 PT Plan Treatment/Plan Treatment Plan: Continue Plan of Care Treatment Plan: Education, Functional Activity Alla, Functional Strength, Gait, Safety, Therapeutic Exercise, Transfers Treatment Duration: Jul 09, 2022 Frequency: 6 times per week Estimated Hrs Per Day: .25 hour per day Patient and/or Family Agrees t: Yes Time Time In: 840 Time Out: 856 DATE: Jul 04, 2022 Total Billed Treatment Time: 16 Total Billed Treatment 1 visit FA 16 min SUSAN SANDERS PT Jul 04, 2022 09:33
[2022-07-04] MEDS: DULoxetine 30 MG (CYMBALTA) CAP PO SCH (10:42)
[2022-07-04] MEDS: PANTOPRAZOLE 40 MG (PROTONIX) TAB PO SCH (10:43)
[2022-07-04] MEDS: LIDOCAINE 4% (SALONPAS) PATCH TOP SCH (10:43)
[2022-07-04] MEDS: LACTOBACILLUS ACIDOPHILUS (PROBIOTIC) CAPSULE PO SCH ×3 (10:43→17:40)
[2022-07-04] MEDS: meTOprolol SUCCINATE 100 MG (TOPROL XL) TAB PO SCH ×2 (10:43→21:31)
[2022-07-04] MEDS: amLODIPine 5 MG (NORVASC) TAB PO SCH (10:43)
[2022-07-04] MEDS: ENOXAPARIN 40 MG/0.4 ML (LOVENOX) SYR SC SCH (10:45)
[2022-07-04] MEDS: MEGESTROL ACETATE 400 MG/10 ML (MEGACE) UDC PO SCH (10:51)
--- NOTE | 2022-07-04 12:51 | Progress Note ---
Subjective Date Seen by a Provider: Jul 04, 2022 Time Seen by a Provider: 08:45 Subjective/Events-last exam Fwup hyponatremia, dehydration, weakness, recent C. diff colitis, anemia, HTN, constipation, liver lesions. Has declined since biopsy. More lethargic and not eating and drinking as well. In fact, had to have rapid response called yesterday due to altered status. Objective Exam Vital Signs Date Time Temp Pulse Resp B/P (MAP) Pulse Ox O2 Delivery O2 Flow Rate FiO2 07/04/22 08:55 36.4 85 17 150/81 (104) 96 Room Air 07/03/22 23:27 36.7 86 18 145/70 (95) 91 Room Air 07/03/22 20:00 Room Air 07/03/22 19:49 36.6 86 20 138/64 (88) 93 Nasal Cannula 2.00 07/03/22 18:39 90 Room Air 0.00 07/03/22 15:28 36.6 86 20 147/71 (96) 90 Room Air I & O 07/04/22 07:00 Intake Total 2670 ml Balance 2670 ml Capillary Refill : Less Than 3 Seconds General Appearance: Other (lethargy) Respiratory: Lungs Clear Cardiovascular: Regular Rate, Rhythm Gastrointestinal: normal bowel sounds, soft, tenderness (RUQ) Extremity: Non Tender, No Calf Tenderness Neurologic/Psychiatric: Disoriented, Other (lethargic) Results Lab Laboratory Tests 07/03/22 18:23: White Blood Count 12.2H, Red Blood Count 2.80L, Hemoglobin 9.3L, Hematocrit 27L, Mean Corpuscular Volume 95, Mean Corpuscular Hemoglobin 33, Mean Corpuscular Hemoglobin Concent 35, Red Cell Distribution Width 19.4H, Platelet Count 216, Mean Platelet Volume 10.9, Sodium Level 127L, Potassium Level 3.7, Chloride Level 88L, Carbon Dioxide Level 28, Anion Gap 11, Blood Urea Nitrogen 10, Creatinine 0.48L, Estimat Glomerular Filtration Rate 106, BUN/Creatinine Ratio 21, Glucose Level 107H, Calcium Level 12.2H, Corrected Calcium 13.7H, Total Bilirubin 1.0, Aspartate Amino Transf (AST/SGOT) 18, Alanine Aminotransferase (ALT/SGPT) 13, Alkaline Phosphatase 151H, Total Protein 4.2L, Albumin 2.1L 07/04/22 08:17: White Blood Count 8.6, Red Blood Count 2.70L, Hemoglobin 8.9L, Hematocrit 26L, Mean Corpuscular Volume 97, Mean Corpuscular Hemoglobin 33, Mean Corpuscular Hemoglobin Concent 34, Red Cell Distribution Width 19.6H, Platelet Count 182, Mean Platelet Volume 10.9, Sodium Level 130L, Potassium Level 3.0L, Chloride L evel 90L, Carbon Dioxide Level 28, Anion Gap 12, Blood Urea Nitrogen 10, Creatinine 0.47L, Estimat Glomerular Filtration Rate 107, BUN/Creatinine Ratio 21, Glucose Level 92, Calcium Level 12.6H, Magnesium Level 1.6 Microbiology 07/02/22 C. difficile GDH Antigen & Toxins - Final, Complete Assessment/Plan Assessment/Plan Assess & Plan/Chief Complaint 1. Hyponatremia--stable on 130 2. Acute Anemia--S/P transfusion, H/H improved, will need EGD and colonoscopy but will wait another 2-4 weeks due to recent C. Diff infection 3. Dehydration/Weakness/Anorexia--PT/OT started but has declined, will resume IVFs 4. Recent C. Diff infection--restarted Vancomycin this weekend but has not had BM for 2 days 5. Hypertension-improving with adding amlodopine 6. Elevated Ferritin and liver lesions--CT guided needle biopsy per radiology done--awaiting pathology results, discussed with patient and that these look like mets--will discuss pathology results in outpatient fwup 7. Hypokalemia--give more IV potassium now [place] very guarded PIETRO TURK DO Jul 04, 2022 12:51
--- NOTE | 2022-07-04 13:58 | Diagnostic Imaging Report ---
PROCEDURE: CT head without contrast. TECHNIQUE: Multiple contiguous axial images were obtained through the brain without the use of intravenous contrast. Auto Exposure Controls were utilized during the CT exam to meet ALARA standards for radiation dose reduction. INDICATION: Confusion. COMPARISON: No prior studies are available for comparison. FINDINGS: The ventricles and sulci are within normal limits. No sulcal effacement or midline shift is identified. No acute intra-axial or extra-axial hemorrhage is detected. The cisterns are patent. The visualized paranasal sinuses are clear. IMPRESSION: No acute intracranial process is detected. Dictated by: Dictated on workstation # [id number]
[2022-07-04 14:00] VITALS: BP 145/69
[2022-07-04 20:05] VITALS: BP 157/74
--- NOTE | 2022-07-04 21:06 | Diagnostic Imaging Report ---
HISTORY: Central line placement TECHNIQUE: Frontal view of the chest. COMPARISON: 07/03/2022 FINDINGS: Lung volumes are large. No consolidation is seen. There is no pleural effusion or pneumothorax. The cardiac silhouette is normal in size. The left subclavian line tip projects over the junction of the left innominate vein with the SVC, directed to the right. IMPRESSION: 1. The left subclavian line tip projects over the junction of the left innominate vein with the SVC. Dictated by: Dictated on workstation # [id number]
[2022-07-04] MEDS ORDERED: D5 1/2 NS 1000 ML IV SOLUTION 1,000 ML IV ONE (21:11)
[2022-07-04] MEDS ORDERED: POTASSIUM CL 10MEQ/50ML IVPB 200 ML IV ONE (21:25)
[2022-07-04] MEDS: D5 1/2 NS 1000 ML IV SOLUTION 1,000 ML IV SCH (21:26)
[2022-07-04] MEDS: POTASSIUM CL 10MEQ/50ML IVPB 50 ML IV SCH ×3 (21:26→23:25)
[2022-07-04] MEDS: PREGABALIN 100 MG (LYRICA) CAPSULE PO SCH (21:31)
[2022-07-04] MEDS: LIDOCAINE PATCH REMOVAL TP SCH (21:31)
[2022-07-04 23:25] VITALS: BP 159/78
[2022-07-05] MEDS: POTASSIUM CL 10MEQ/50ML IVPB 50 ML IV SCH ×5 (00:25→22:53)
--- NOTE | 2022-07-05 02:31 | OPERATIVE REPORT ---
DATE OF SERVICE: 07/04/2022 ATTENDING PRIMARY CARE PHYSICIAN: Dayami Garcia DO PREOPERATIVE DIAGNOSES: Anemia, liver lesions, confusion, poor peripheral venous circulation. POSTOPERATIVE DIAGNOSES: Anemia, liver lesions, confusion, poor peripheral venous circulation. PROCEDURE: Placement left subclavian central venous catheter. SURGEON: Beti Mckeon MD ANESTHESIA: Local. ESTIMATED BLOOD LOSS: Minimal. DISPOSITION: The patient tolerated the procedure well. INDICATIONS: The patient is a 62-year-old female who we had seen on this admission for recurrent Clostridium difficile infection. She had had the infection just before Larry and was treated as an outpatient with vancomycin. During that timeframe, she also did have loss of appetite and weight loss. She returned with weakness, dehydration, anemia as well as hypovolemia and hyponatremia. She was given packed red blood cells and her hemoglobin did go up appropriately, but she did develop worsening confusion and agitation at night. On this admission, a CT scan was performed at the abdomen, which did show liver lesions, which were recently biopsied as well. The patient has very poor peripheral venous circulation and will require continued IV fluids, medications as well as frequent blood draws. Attempts were made at PICC line and midlines however unsuccessful. DESCRIPTION OF PROCEDURE: The chest and neck were prepped and draped in standard surgical fashion. 1% lidocaine was used to anesthetize the left subclavian region. The left subclavian vein was then cannulated with drawing of venous blood. A guidewire was then inserted without any resistance. The cannulating needle removed and a skin incision made using 11 blade. A tract was then created using a venous dilator and through this opening a triple lumen central venous catheter was placed over the guidewire using the Seldinger technique. All 3 ports angie venous blood and saline pushed in without any resistance. The catheter was then sutured to the skin using 3-0 silk interrupted sutures. Catheter was then cleaned and covered with Op-Site. The patient tolerated the procedure well. We will get a post-procedure chest x-ray and once confirmation of placement, the catheter may be accessed and used at any time. Job ID: [id number] DocumentID: [id number] Dictated Date: 07/04/2022 21:17:16 Attendant Honor Bar Date: 07/05/2022 02:30:00 Dictated By: BETI MCKEON MD
[2022-07-05 04:28] VITALS: BP 148/42
[2022-07-05] MEDS: VANCOMYCIN 125 MG CAPSULE PO SCH ×2 (05:24→12:45)
[2022-07-05] MEDS: KCL 20 MEQ TAB (K-DUR) PO SCH (05:24)
[2022-07-05] MEDS: D5 1/2 NS 1000 ML IV SOLUTION 1,000 ML IV SCH ×2 (07:09→17:49)
[2022-07-05 07:18] VITALS: BP 182/77
[2022-07-05] MEDS: DULoxetine 30 MG (CYMBALTA) CAP PO SCH ×2 (08:27→11:12)
[2022-07-05] MEDS: LACTOBACILLUS ACIDOPHILUS (PROBIOTIC) CAPSULE PO SCH ×4 (08:27→17:49)
[2022-07-05] MEDS: meTOprolol SUCCINATE 100 MG (TOPROL XL) TAB PO SCH ×2 (08:27→20:19)
[2022-07-05] MEDS: amLODIPine 5 MG (NORVASC) TAB PO SCH (08:27)
[2022-07-05] MEDS: PANTOPRAZOLE 40 MG (PROTONIX) TAB PO SCH ×2 (08:27→09:00)
[2022-07-05] MEDS: ENOXAPARIN 40 MG/0.4 ML (LOVENOX) SYR SC SCH (08:28)
[2022-07-05] MEDS: LIDOCAINE 4% (SALONPAS) PATCH TOP SCH (08:28)
[2022-07-05] MEDS: MEGESTROL ACETATE 400 MG/10 ML (MEGACE) UDC PO SCH (10:35)
--- NOTE | 2022-07-05 10:38 | Physical Therapy Progress Note ---
Therapy Progress Note Patient on Hold per RN due to decline in status. PT did visit with spouse and attempted to see patient prior to talking to RN. Patient is severely lethargic and mumbles. Does not respond appropriately to questions. PT will continue to monitor patient's status and attempt to see patient daily. SUSAN SANDERS PT Jul 05, 2022 10:38
[2022-07-05 12:00] VITALS: BP 179/72
[2022-07-05 12:36] LABS: HEMATOCRIT 27 % (35-52); HEMOGLOBIN 9.2 g/dL (11.5-16.0); MEAN CORPUSCULAR HEMOGLOBIN 33 pg (25-34); MEAN CORPUSCULAR HGB CONC 34 g/dL (32-36); MEAN CORPUSCULAR VOLUME 97 fL (80-99); MEAN PLATELET VOLUME 10.9 fL (9.0-12.2); PLATELET COUNT 155 10^3/uL (130-400); WHITE BLOOD COUNT 9.3 10^3/uL (4.3-11.0)
[2022-07-05 12:51] LABS: ALBUMIN 2.4 GM/DL (3.2-4.5)
[2022-07-05 12:53] LABS: CALCIUM 12.8 MG/DL (8.5-10.1)
[2022-07-05 12:54] LABS: TOTAL PROTEIN 4.8 GM/DL (6.4-8.2)
[2022-07-05 12:56] LABS: BILIRUBIN,TOTAL 1.4 MG/DL (0.1-1.0)
[2022-07-05 12:58] LABS: CREATININE SERUM 0.49 MG/DL (0.60-1.30)
[2022-07-05 13:02] LABS: POTASSIUM 2.4 MMOL/L (3.6-5.0)
[2022-07-05 15:59] VITALS: BP 146/73
--- NOTE | 2022-07-05 18:59 | Progress Note ---
Subjective Date Seen by a Provider: Jul 05, 2022 Time Seen by a Provider: 12:00 Subjective/Events-last exam Fwup hyponatremia, dehydration, weakness, recent C. diff colitis, anemia, HTN, constipation, liver lesions. Still very lethargic. Not eating or drinking. Not able to walk to bathroom. Objective Exam Vital Signs Date Time Temp Pulse Resp B/P (MAP) Pulse Ox O2 Delivery O2 Flow Rate FiO2 07/05/22 15:59 36.8 97 20 146/73 (97) 94 Room Air 07/05/22 12:00 36.6 107 18 179/72 (107) 96 Room Air 07/05/22 07:18 36.4 110 17 182/77 (112) 94 Room Air 07/05/22 04:28 36.0 100 16 148/42 (77) 97 Room Air 07/04/22 23:25 36.8 96 16 159/78 (105) 99 Room Air 07/04/22 20:05 36.8 95 16 157/74 (101) 94 Room Air 07/04/22 19:30 Room Air I & O 07/05/22 06:59 Intake Total 2050 ml Output Total 850 ml Balance 1200 ml Capillary Refill : Less Than 3 Seconds General Appearance: Moderate Distress Respiratory: Lungs Clear Cardiovascular: Regular Rate, Rhythm Gastrointestinal: normal bowel sounds, soft, tenderness (RU) Extremity: Non Tender, No Calf Tenderness Skin: Warm/Dry Results Lab Laboratory Tests 07/04/22 20:47: Glucometer 64L 07/04/22 21:05: Glucometer 67L 07/04/22 21:42: Glucometer 74 07/05/22 05:09: Glucometer 126H 07/05/22 11:11: Glucometer 100 07/05/22 12:25: White Blood Count 9.3, Red Blood Count 2.79L, Hemoglobin 9.2L, Hematocrit 27L, Mean Corpuscular Volume 97, Mean Corpuscular Hemoglobin 33, Mean Corpuscular Hemoglobin Concent 34, Red Cell Distribution Width 19.6H, Platelet Count 155, Mean Platelet Volume 10.9, Sodium Level 127L, Potassium Level 2.4*L, Chloride Level 86L, Carbon Dioxide Level 29, Anion Gap 12, Blood Urea Nitrogen 5L, Creatinine 0.49L, Estimat Glomerular Filtration Rate 106, BUN/Creatinine Ratio 10, Glucose Level 166H, Calcium Level 12.8H, Corrected Calcium 14.1H, Total Bilirubin 1.4H, Aspartate Amino Transf (AST/SGOT) 18, Alanine Aminotransferase ( ALT/SGPT) 15, Alkaline Phosphatase 141H, Ammonia 18, Total Protein 4.8L, Albumin 2.4L 07/05/22 15:36: Glucometer 134H Microbiology 07/02/22 C. difficile GDH Antigen & Toxins - Final, Complete Assessment/Plan Assessment/Plan Assess & Plan/Chief Complaint 1. Hyponatremia--stable 2. Acute Anemia--S/P transfusion, H/H improved, will need EGD and colonoscopy but will wait another 2-4 weeks due to recent C. Diff infection 3. Dehydration/Weakness/Anorexia--PT started but patient not able to participate--has declined dramatically in past few days 4. Recent C. Diff infection--Stopped Vanc due to not taking pills 5. Hypertension-stable with metoprolol and amlodopine 6. Elevated Ferritin and liver lesions--CT guided needle biopsy per radiology done--awaiting pathology results, discussed with patient and that these look like mets--will discuss pathology results in outpatient fwup, discussed palliative care options since patient will not eat or drink and is getting weaker 7. Hypokalemia--replace potassium via IV [place] very guarded/poor PIETRO TURK DO Jul 05, 2022 18:59
[2022-07-05 19:19] VITALS: BP 158/73
[2022-07-05] MEDS: D5 1/2 NS W/KCL 40 MEQ/L 1,000 ML IV SCH (19:22)
[2022-07-05] MEDS: PREGABALIN 100 MG (LYRICA) CAPSULE PO SCH (20:27)
[2022-07-05] MEDS: LIDOCAINE PATCH REMOVAL TP SCH (20:29)
[2022-07-05 23:30] VITALS: BP 130/82
[2022-07-06 04:51] VITALS: BP 148/95
[2022-07-06] MEDS: D5 1/2 NS W/KCL 40 MEQ/L 1,000 ML IV SCH ×2 (04:55→14:13)
[2022-07-06] MEDS: KCL 20 MEQ TAB (K-DUR) PO SCH ×2 (04:55→08:41)
[2022-07-06 06:13] LABS: CREATININE SERUM 0.45 MG/DL (0.60-1.30); POTASSIUM 2.8 MMOL/L (3.6-5.0)
[2022-07-06 08:17] VITALS: BP 165/72
[2022-07-06] MEDS: MEGESTROL ACETATE 400 MG/10 ML (MEGACE) UDC PO SCH (08:41)
[2022-07-06] MEDS: amLODIPine 5 MG (NORVASC) TAB PO SCH (08:41)
[2022-07-06] MEDS: LACTOBACILLUS ACIDOPHILUS (PROBIOTIC) CAPSULE PO SCH ×3 (08:42→18:15)
[2022-07-06] MEDS: DULoxetine 30 MG (CYMBALTA) CAP PO SCH (08:42)
[2022-07-06] MEDS: meTOprolol SUCCINATE 100 MG (TOPROL XL) TAB PO SCH ×2 (08:42→19:28)
[2022-07-06] MEDS: ENOXAPARIN 40 MG/0.4 ML (LOVENOX) SYR SC SCH (08:42)
[2022-07-06] MEDS: PANTOPRAZOLE 40 MG (PROTONIX) TAB PO SCH (08:43)
[2022-07-06] MEDS: LIDOCAINE 4% (SALONPAS) PATCH TOP SCH (09:50)
[2022-07-06 11:59] VITALS: BP 153/70
[2022-07-06] MEDS ORDERED: TPN IV SCH (13:30)
--- NOTE | 2022-07-06 14:05 | Physical Therapy Daily Note ---
PT Daily Note-Current Subjective Patient in bed pre tx, doesn't really communicate but does have eyes open. Pain Section J - Health Conditions 1. Rarely or not at all 2. Occasionally 3. Frequently 4. Almost constantly 8. Unable to answer Pain Effect on Sleep: 1 Pain Interference with Therapy: 1 Pain Interference w/Day-to-Day: 1 Appearance Patient in bed post tx with nurse call, phone, tray, all needs met. Mental Status Patient Orientation: Confused, Eyes Open Attachments: IV Transfers SCALE: Activities may be completed with or without assistive devices. 1-Ohlwqpanqc-gxmoliy completes the activity by him/herself with no assistance from a helper. 5-Set-up or Clean-up Assistance-helper sets up or cleans up; patient completes activity. [place] assists only prior to or following the activity. 4-Supervision or Touching Assistance-helper provides verbal cues and/or touching/steadying and/or contact guard assistance as patient completes activity. Assistance may be provided throughout the activity or intermittently. 3-Partial/Moderate Assistance-helper does LESS THAN HALF the effort. [place] lifts, holds or supports trunk or limbs, but provides less than half the effort. 2-Substantial/Maximal Assistance-helper does MORE THAN HALF the effort. [place] lifts or holds trunk or limbs and provides more than half the effort. 9-Mlwmuoctq-fhazwe does ALL the effort. Patient does none of the effort to complete the activity. Or, the assistance of 2 or more helpers is required for the patient to complete the activity. If activity was not attempted, code reason: 7-Patient Refused. 9-Not Applicable-not attempted and the patient did not perform the activity before the current illness, exacerbation or injury. 10-Not Attempted due to Environmental Limitations-(lack of equipment, weather restraints, etc.). 88-Not Attempted due to Medical Conditions or Safety Concerns. Roll Left & Right (QC): 2 Sit to Lying (QC): 2 Lying to Sitting/Side of Bed(Q: 2 Max assist to sit to the side of the bed, patient only sits for about 30 seconds before indicating that she needs to lay back down. Weight Bearing Weight Bearing/Tolerated Weight Bearing/Tolerated Exercises Supine Ex: Ankle pumps, Heel Slides, Hip abd/add Supine Reps: 20 (AAROM) Treatments sitting, LE ROM Assessment Current Status: Poor Progress patient is getting progressively weaker PT Short Term Goals Short Term Goals Time Frame: Jul 16, 2022 Sit to stand: 6 Walk 10 feet: 6 Walk 50 feet with two turns: 6 Walk 150 feet: 6 Walking 10ft on uneven surface: 6 1 step (curb): 6 4 steps: 6 PT Nursing Home Goals Nursing Home Goals PT Nursing Home Goals Time Frame: Jul 09, 2022 Roll Left & Right (QC): 6 Sit to Lying (QC): 6 Lying-Sitting on Side/Bed(QC): 6 Sit to Stand (QC): 6 Chair/Knz-ef-Abiab Xfer(QC): 6 Toilet Transfer (QC): 6 Walk 10 feet (QC): 6 Walk 50ft with 2 Turns (QC): 6 Walk 150 ft (QC): 6 PT Plan Problem List Problem List: Activity Tolerance, Functional Strength, Safety, Balance, Gait, Transfer, Bed Mobility, ROM Treatment/Plan Treatment Plan: Continue Plan of Care Treatment Plan: Education, Functional Activity Alla, Functional Strength, Gait, Safety, Therapeutic Exercise, Transfers Treatment Duration: Jul 09, 2022 Frequency: 6 times per week Estimated Hrs Per Day: .25 hour per day Patient and/or Family Agrees t: Yes Safety Risks/Education Patient Education: Correct Positioning, Safety Issues Teaching Recipient: Patient Teaching Methods: Demonstration, Discussion Response to Teaching: Reinforcement Needed Time Time In: 1335 Time Out: 1345 DATE: Jul 06, 2022 Total Billed Treatment Time: 10 Total Billed Treatment 1 visit EX OZZY DYE PT Jul 06, 2022 14:05
[2022-07-06] MEDS: POTASSIUM CL 10MEQ/50ML IVPB 50 ML IV SCH ×4 (14:13→18:17)
[2022-07-06 16:03] VITALS: BP 143/83
[2022-07-06 16:05] LABS: PHOSPHORUS 1.4 MG/DL (2.3-4.7)
--- NOTE | 2022-07-06 16:38 | Progress Note ---
Subjective Date Seen by a Provider: Jul 06, 2022 Time Seen by a Provider: 12:45 Subjective/Events-last exam Fwup hyponatremia, dehydration, weakness, recent C. diff colitis, anemia, HTN, constipation, liver lesions. Still very lethargic. Still not eating or drinking. Objective Exam Vital Signs Date Time Temp Pulse Resp B/P (MAP) Pulse Ox O2 Delivery O2 Flow Rate FiO2 07/06/22 16:03 37.6 95 16 143/83 (103) 98 Room Air 07/06/22 11:59 37.0 93 18 153/70 (97) 92 Room Air 07/06/22 08:17 37.1 97 18 165/72 (103) 91 Room Air 07/06/22 08:00 Room Air 07/06/22 04:51 36.7 99 16 148/95 (112) 97 Room Air 07/05/22 23:30 36.8 102 20 130/82 (98) 97 Room Air 07/05/22 20:38 Room Air 07/05/22 19:19 36.8 100 18 158/73 (101) 95 Room Air I & O 07/06/22 06:59 Intake Total 2250 ml Output Total 800 ml Balance 1450 ml Capillary Refill : Less Than 3 Seconds General Appearance: Mild Distress Neck: Supple Respiratory: Lungs Clear Cardiovascular: Regular Rate, Rhythm Gastrointestinal: normal bowel sounds, non tender, soft Extremity: Non Tender, No Calf Tenderness, No Pedal Edema Neurologic/Psychiatric: Other (lethargic) Skin: Warm/Dry Results Lab Laboratory Tests 07/06/22 05:28: Sodium Level 130L, Potassium Level 2.8L, Chloride Level 88L, Carbon Dioxide Level 26, Anion Gap 16H, Blood Urea Nitrogen 3L, Creatinine 0.45L, Estimat Glomerular Filtration Rate 108, BUN/Creatinine Ratio 7, Glucose Level 131H, Calcium Level 12.0H 07/06/22 11:18: Glucometer 128H 07/06/22 15:35: Phosphorus Level 1.4L, Magnesium Level 1.0*L, Triglycerides Level 74 07/06/22 15:41: Glucometer 85 Microbiology 07/02/22 C. difficile GDH Antigen & Toxins - Final, Complete Assessment/Plan Assessment/Plan Assess & Plan/Chief Complaint 1. Hyponatremia--stable 2. Acute Anemia--S/P transfusion, H/H improved, will need EGD and colonoscopy but will wait another 2-4 weeks due to recent C. Diff infection 3. Dehydration/Weakness/Anorexia--PT started but patient not able to participate--has declined dramatically in past few days 4. Recent C. Diff infection--Stopped Vanc due to not taking pills 5. Hypertension-stable with metoprolol and amlodopine 6. Elevated Ferritin and liver lesions--CT guided needle biopsy per radiology done--biopsy results indeterminate, discussed with patient and that the se look like mets, discussed palliative care options since patient will not eat or drink and is getting weaker, otherwise discussed TPN vs feeding tube 7. Hypokalemia--replace potassium via IV 8. Hypomagnesemia--replace magnesium 9. Malnutrition--start TPN, discussed feeding tube but if patient does not start eating/drinking on own then would be better to go with hospice [place] very guarded/poor PIETRO TURK DO Jul 06, 2022 16:38
[2022-07-06] MEDS ORDERED: MAGNESIUM 2 GM/50 ML IVPB 50 ML IV ONE (16:45)
[2022-07-06] MEDS: MAGNESIUM 1 GM/100 ML IVPB 100 ML IV SCH ×5 (16:59→21:41)
[2022-07-06] MEDS ORDERED: MAGNESIUM 1 GM/D5W 100 ML IVPB IV SCH (17:00)
[2022-07-06] MEDS: SODIUM PHOSPHATE INJ 7.5 MM in NS (IVPB) 50 ML INJ SCH ×6 (17:21→22:46)
[2022-07-06 19:43] VITALS: BP 134/61
[2022-07-06] MEDS ORDERED: DEXTROSE 50% 50 ML (IMS) SYR ONE ×2 (20:48→21:13)
[2022-07-06] MEDS ORDERED: DEXTROSE 50% 50 ML (IMS) SYR IV ONE ×2 (21:00→21:30)
[2022-07-06 21:53] LABS: POTASSIUM 3.2 MMOL/L (3.6-5.0)
[2022-07-06 21:58] LABS: CREATININE SERUM 0.54 MG/DL (0.60-1.30)
[2022-07-06] MEDS: LIDOCAINE PATCH REMOVAL TP SCH (22:38)
[2022-07-06 23:01] VITALS: BP 157/74
[2022-07-07] MEDS: HYDROcodone/APAP 5 MG/325 MG (LORTAB) TAB PO PRN (01:19)
[2022-07-07] MEDS: D5 1/2 NS W/KCL 40 MEQ/L 1,000 ML IV SCH ×2 (01:27→12:00)
[2022-07-07 03:06] VITALS: BP 140/69
[2022-07-07 07:56] VITALS: BP 133/60
[2022-07-07] MEDS: ENOXAPARIN 40 MG/0.4 ML (LOVENOX) SYR SC SCH (09:57)
[2022-07-07] MEDS: PANTOPRAZOLE 40 MG (PROTONIX) TAB PO SCH (09:57)
[2022-07-07] MEDS: DULoxetine 30 MG (CYMBALTA) CAP PO SCH (09:58)
[2022-07-07] MEDS: LACTOBACILLUS ACIDOPHILUS (PROBIOTIC) CAPSULE PO SCH ×3 (09:58→17:17)
[2022-07-07] MEDS: meTOprolol SUCCINATE 100 MG (TOPROL XL) TAB PO SCH ×2 (09:58→20:52)
[2022-07-07] MEDS: MEGESTROL ACETATE 400 MG/10 ML (MEGACE) UDC PO SCH (09:58)
[2022-07-07] MEDS: amLODIPine 5 MG (NORVASC) TAB PO SCH (09:58)
[2022-07-07] MEDS: LIDOCAINE 4% (SALONPAS) PATCH TOP SCH (09:59)
--- NOTE | 2022-07-07 10:00 | Physical Therapy Progress Note ---
Therapy Progress Note Patient on hold per RN due to decline in status. Will attempt tomorrow SUSAN Guerra PT Jul 07, 2022 10:00
[2022-07-07 10:04] LABS: ALBUMIN 1.9 GM/DL (3.2-4.5); BILIRUBIN,TOTAL 1.1 MG/DL (0.1-1.0); CALCIUM 11.1 MG/DL (8.5-10.1); CREATININE SERUM 0.44 MG/DL (0.60-1.30); PHOSPHORUS 2.6 MG/DL (2.3-4.7); POTASSIUM 2.8 MMOL/L (3.6-5.0); TOTAL PROTEIN 4.3 GM/DL (6.4-8.2)
[2022-07-07 11:21] VITALS: BP 130/61
[2022-07-07] MEDS: POTASSIUM CL 10MEQ/50ML IVPB 50 ML IV SCH ×4 (12:00→14:47)
[2022-07-07 15:14] VITALS: BP 151/69
[2022-07-07] MEDS ORDERED: DEXTROSE 50% 50 ML (IMS) SYR IV NR (15:30)
[2022-07-07] MEDS: DEXTROSE 10% IV SCH (16:17)
[2022-07-07] MEDS: 1/2 NS IV SOLUTION 1,000 ML IV SCH (16:17)
[2022-07-07] MEDS: POTASSIUM CHLORIDE IV SCH (16:17)
--- NOTE | 2022-07-07 17:06 | Progress Note ---
Subjective Date Seen by a Provider: Jul 07, 2022 Time Seen by a Provider: 12:45 Subjective/Events-last exam Fwup hyponatremia, dehydration, weakness, recent C. diff colitis, anemia, HTN, constipation, liver lesions. More awake today but still not eating or drinking. Cannot tell me why she will not eat or drink--denies pain, denies nausea. Objective Exam Vital Signs Date Time Temp Pulse Resp B/P (MAP) Pulse Ox O2 Delivery O2 Flow Rate FiO2 07/07/22 15:14 37.3 98 20 151/69 (96) 93 Room Air 07/07/22 11:21 36.8 83 18 130/61 (84) 93 Room Air 07/07/22 08:00 93 Room Air 07/07/22 07:56 36.9 89 17 133/60 (84) 91 Room Air 07/07/22 03:06 37.0 96 20 140/69 (92) 97 Room Air 07/06/22 23:01 37.4 94 18 157/74 (101) 100 Room Air 07/06/22 19:43 37.0 72 16 134/61 (85) 93 Room Air 07/06/22 19:42 Room Air I & O 07/07/22 07:00 Intake Total 1737.5 ml Output Total 800 ml Balance 937.5 ml Capillary Refill : Less Than 3 Seconds General Appearance: Mild Distress Respiratory: Lungs Clear Cardiovascular: Regular Rate, Rhythm Gastrointestinal: normal bowel sounds, soft, tenderness (RUQ--mild) Extremity: Non Tender, No Calf Tenderness, No Pedal Edema Neurologic/Psychiatric: Alert Results Lab Laboratory Tests 07/06/22 20:45: Glucometer 36*L 07/06/22 21:12: Glucometer 14*L 07/06/22 21:14: Glucometer 22*L 07/06/22 21:28: Glucometer 49*L 07/06/22 21:42: Sodium Level 129L, Potassium Level 3.2L, Chloride Level 87L, Carbon Dioxide Level 25, Anion Gap 17H, Blood Urea Nitrogen 2L, Creatinine 0.54L, Estimat Glomerular Filtration Rate 103, BUN/Creatinine Ratio 4, Glucose Level 297H, Calcium Level 11.0H 07/06/22 21:45: Glucometer 44*L 07/06/22 22:07: Glucometer 65L 07/06/22 22:08: Glucometer 304H 07/07/22 05:37: Glucometer 128H 07/07/22 09:34: Sodium Level 132L, Potassium Level 2.8L, Chloride Level 90L, Carbon Dioxide Level 24, Anion Gap 18H, Blood Urea Nitrogen 3L, Creatinine 0.44L, Estimat Glomerular Filtration Rate 109, BUN/Creatinine Ratio 7, Glucose Level 119H, Calcium Level 11.1H, Corrected Calcium 12.8H, Phosphorus Level 2.6, Magnesium Level 2.0, Total Bilirubin 1.1H, Aspartate Amino Transf (AST/SGOT) 13, Alanine Aminotransferase (ALT/SGPT) 8, Alkaline Phosphatase 128, Total Protein 4.3L, Albumin 1.9L 07/07/22 11:10: Glucometer 107 07/07/22 15:17: Glucometer 49*L Microbiology 07/02/22 C. difficile GDH Antigen & Toxins - Final, Complete Assessment/Plan Assessment/Plan Assess & Plan/Chief Complaint 1. Hyponatremia--stable 2. Acute Anemia--S/P transfusion, H/H improved, will need EGD and colonoscopy but will wait another 2-4 weeks due to recent C. Diff infection 3. Dehydration/Weakness/Anorexia--PT started but patient not able to participate due to poor nutrition 4. Recent C. Diff infection--Stopped Vanc due to not taking pills 5. Hypertension-stable with metoprolol and amlodopine 6. Elevated Ferritin and liver lesions--CT guided needle biopsy per radiology done--biopsy results indeterminate, discussed with patient and that these look like mets, discussed palliative care options since patient will not eat or drink and is getting weaker, otherwise discussed TPN vs feeding tube--patient states she does not want a feeding tube, discussed further workup of liver lesions once patient is stronger/more stable 7. Hypokalemia--replace potassium via IV 8. Hypomagnesemia--improved after IV replacement 9. Malnutrition--start TPN, discussed feeding tube but if patient does not start eating/drinking on own then would be better to go with hospice [place] very guarded/poor PIETRO TURK DO Jul 07, 2022 17:06
[2022-07-07 19:19] VITALS: BP 151/70
[2022-07-07] MEDS: LIDOCAINE PATCH REMOVAL TP SCH (20:50)
[2022-07-07 23:13] VITALS: BP 135/61
[2022-07-08 04:48] VITALS: BP 138/82
[2022-07-08] MEDS: KCL 20 MEQ TAB (K-DUR) PO SCH (05:47)
[2022-07-08 07:43] VITALS: BP 159/71
--- NOTE | 2022-07-08 09:26 | Physical Therapy Progress Note ---
Therapy Progress Note Patient appears restless in bed. Spouse present. Patient declined PT by shaking her head. Spouse also declined treatment at this time. RN notified. 1 ref SUSAN SANDERS PT Jul 08, 2022 09:26
[2022-07-08] MEDS: MEGESTROL ACETATE 400 MG/10 ML (MEGACE) UDC PO SCH (09:28)
[2022-07-08] MEDS: meTOprolol SUCCINATE 100 MG (TOPROL XL) TAB PO SCH (09:28)
[2022-07-08] MEDS: amLODIPine 5 MG (NORVASC) TAB PO SCH (09:28)
[2022-07-08] MEDS: ENOXAPARIN 40 MG/0.4 ML (LOVENOX) SYR SC SCH (09:28)
[2022-07-08] MEDS: POTASSIUM CHLORIDE IV SCH (09:32)
[2022-07-08] MEDS: DEXTROSE 10% IV SCH (09:32)
[2022-07-08] MEDS: LIDOCAINE 4% (SALONPAS) PATCH TOP SCH (09:38)
[2022-07-08] MEDS: LACTOBACILLUS ACIDOPHILUS (PROBIOTIC) CAPSULE PO SCH ×2 (09:39→13:05)
[2022-07-08] MEDS: 1/2 NS IV SOLUTION 1,000 ML IV SCH (09:39)
[2022-07-08] MEDS: DULoxetine 30 MG (CYMBALTA) CAP PO SCH (09:39)
[2022-07-08] MEDS: PANTOPRAZOLE 40 MG (PROTONIX) TAB PO SCH (09:39)
[2022-07-08 11:19] VITALS: BP 147/69
[2022-07-08 15:49] VITALS: BP 156/74
--- NOTE | 2022-07-08 17:04 | Progress Note ---
Subjective Date Seen by a Provider: Jul 08, 2022 Time Seen by a Provider: 16:58 Subjective/Events-last exam Fwup hyponatremia, dehydration, weakness, recent C. diff colitis, anemia, HTN, constipation, liver lesions. Patient still not eating or drinking and remains altered. Discussed with , sons and KB that prognosis is very poor and they are in agreement for comfort care. Objective Exam Vital Signs Date Time Temp Pulse Resp B/P (MAP) Pulse Ox O2 Delivery O2 Flow Rate FiO2 07/08/22 15:49 37.4 101 18 156/74 (101) 92 Room Air 07/08/22 11:35 92 Room Air 07/08/22 11:19 36.6 100 18 147/69 (95) 92 Room Air 07/08/22 07:43 36.6 104 18 159/71 (100) 93 Room Air 07/08/22 04:48 37.0 88 20 138/82 (100) 94 Room Air 07/07/22 23:13 36.5 90 18 135/61 (85) 93 Room Air 07/07/22 20:52 Room Air 07/07/22 19:19 36.8 85 20 151/70 (97) 94 Room Air I & O 07/08/22 06:59 Intake Total 475 ml Output Total 1450 ml Balance -975 ml Capillary Refill : Less Than 3 Seconds General Appearance: Other (altered) Respiratory: Lungs Clear Cardiovascular: Regular Rate, Rhythm Gastrointestinal: normal bowel sounds, soft Neurologic/Psychiatric: Alert, Disoriented Results Lab Laboratory Tests 07/07/22 20:03: Glucometer 96 07/08/22 06:30: Glucometer 48*L 07/08/22 06:31: Glucometer 106 07/08/22 11:09: Glucometer 113H 07/08/22 15:52: Glucometer 41*L 07/08/22 15:56: Glucometer 106 Microbiology 07/02/22 C. difficile GDH Antigen & Toxins - Final, Complete Assessment/Plan Assessment/Plan Assess & Plan/Chief Complaint 1. Hyponatremia--stable 2. Acute Anemia--S/P transfusion, H/H improved, endoscopy not advisable with patient's worsening condition 3. Dehydration/Weakness/Anorexia--PT started but patient not able to participate due to worsening condition 4. Recent C. Diff infection--starting to have bowel incontinence 5. Hypertension-stable with metoprolol and amlodopine 6. Elevated Ferritin and liver lesions--CT guided needle biopsy per radiology done--biopsy results discussed with family and further workup that would be needed, discussed palliative care options since patient will not eat or drink a nd is getting weaker, otherwise discussed TPN vs feeding tube--patient states she does not want a feeding tube--will proceed with comfort care 7. Hypokalemia--comfort care 8. Hypomagnesemia--comfort care 9. Malnutrition--comfort care [place] very guarded/poor PIETRO TURK DO Jul 08, 2022 17:03
[2022-07-08] MEDS ORDERED: BISACODYL 10 MG SUPP (DULCOLAX) PR PRN (17:15)
[2022-07-08] MEDS ORDERED: SALIVA SUBSTITUTE 60 ML SPRAY(MOUTHKOTE) MM PRN (17:15)
[2022-07-08] MEDS ORDERED: ONDANSETRON 4 MG/2 ML (SDV) Z0FRAN IVP PRN (17:15)
[2022-07-08] MEDS ORDERED: ARTIFICAL TEARS 0.4 ML UNIT DOSE (REFRESH PLUS) OU PRN (17:15)
[2022-07-08] MEDS ORDERED: ACETAMINOPHEN 650 MG SUPP (TYLENOL) PR PRN (17:15)
[2022-07-08] MEDS ORDERED: GLYCOPYRROLATE 0.2 MG/ML (ROBINUL) 2 ML VIAL IV PRN (17:15)
[2022-07-08] MEDS ORDERED: LORazepam ORAL CONCENTRATE 2 MG/ML 30 ML (ATIVAN) PO PRN (17:15)
[2022-07-08] MEDS ORDERED: LORazepam INJ 2 MG/ML (ATIVAN) VIAL IVP PRN (17:15)
[2022-07-08] MEDS ORDERED: RT-ALBUTEROL/IPRATROPIUM 3 ML (DUONEB) VIAL INH PRN (17:15)
[2022-07-08] MEDS ORDERED: PROMETHAZINE INJ 25 MG/ML (PHENERGAN) AMP IVP PRN (17:15)
[2022-07-08] MEDS: morphine INJ 4 MG/ML 1 ML (VIAL/SYRINGE) IV PRN ×2 (17:55→21:10)
[2022-07-08] MEDS: LIDOCAINE PATCH REMOVAL TP SCH (21:36)
--- NOTE | 2022-07-09 07:53 | Physical Therapy Progress Note ---
Therapy Progress Note Patient is now on comfort care, will DC physical therapy at this time. OZZY PITTS PT Jul 09, 2022 07:53
[2022-07-09] MEDS: LIDOCAINE 4% (SALONPAS) PATCH TOP SCH (10:47)
--- NOTE | 2022-07-09 12:41 | Progress Note ---
Subjective Date Seen by a Provider: Jul 09, 2022 Time Seen by a Provider: 12:38 Subjective/Events-last exam Fwup hyponatremia, dehydration, weakness, recent C. diff colitis, anemia, HTN, constipation, liver lesions. Patient less restless today. Still confused. Still won't eat or drink. Objective Exam Vital Signs Date Time Temp Pulse Resp B/P (MAP) Pulse Ox O2 Delivery O2 Flow Rate FiO2 07/09/22 08:00 Room Air 07/09/22 07:23 Room Air 0.00 07/08/22 19:50 Room Air 07/08/22 19:10 92 Room Air 07/08/22 15:49 37.4 101 18 156/74 (101) 92 Room Air I & O 07/09/22 07:00 Intake Total 0 ml Output Total 1280 ml Balance -1280 ml Capillary Refill : Less Than 3 Seconds General Appearance: No Apparent Distress Gastrointestinal: soft, tenderness (RUQ) Neurologic/Psychiatric: Alert, Disoriented Results Lab Laboratory Tests 07/08/22 15:52: Glucometer 41*L 07/08/22 15:56: Glucometer 106 Microbiology 07/02/22 C. difficile GDH Antigen & Toxins - Final, Complete Assessment/Plan Assessment/Plan Assess & Plan/Chief Complaint 1. 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
[2022-07-09] MEDS: morphine INJ 4 MG/ML 1 ML (VIAL/SYRINGE) IV PRN ×2 (14:16→21:37)
[2022-07-09] MEDS: LIDOCAINE PATCH REMOVAL TP SCH (21:47)
--- NOTE | 2022-07-10 09:26 | Discharge Summary ---
Diagnosis/Chief Complaint Date of Admission Jun 25, 2022 at 12:00 Date of Discharge Jul 10, 2022 at 03:00 Discharge Diagnosis 1. 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 Acute Anemia--S/P transfusion 3. Dehydration/Weakness/Anorexia--PT started but patient not able to participate due to worsening condition 4. Recent C. Diff infection with bowel incontinence due to advanced illness 5. Hypertension 6. Metastatic Squamous Cell Cancer to Liver--unknown primary 7. Hypokalemia--comfort care 8. Hypomagnesemia--comfort care 9. Malnutrition--worsening due to refusal to eat or drink, comfort care 10. Metabolic Encephalopathy--worsening Discharge Summary Hospital Course Was the Problem List Reviewed?: Yes Hospital Course This is a 62 year old female who presented to the emergency room with worsening weakness and poor appetite. She had been diagnosed with C. Diff approimately 1 month ago and had continued to have diarrhea and poor appetite as well as worsening weakness and debility. She was found to be hyponatremic, dehydrated and anemic with a hemoglobin of 6.3 and hematocrit of 19. She was admitted and given 2u of pRBCS and started on IVFs. Her hemoglobin and hematocrit stabilized post-transfusion. However she continued to remain hyponatremic with a sodium of 125. She was given hypertonic saline and her sodium increased to 131 but then quickly dropped back down to 127 the following day. Surgery was consulted to consider endoscopy but due to her recent C. Diff they wanted to hold for 2-4 more weeks to avoid risk of perforation. Iron studies were done due to her anemia and she was found to have a ferritin level in the 700s so a liver US was ordered. This showed numerous liver lesions concerning for cancer. A CT of the chest, abdomen and pelvis were done and the liver lesions did look like metastatic lesions to the liver. There were no other masses noted in the scans. A CT guided liver biopsy was ordered and done on 07/01/22. The patient and her were told that these lesions were likely metastatic cancer. The patient had been improving slightly up to that point and had been up ambulating with PT and to the bathroom on her own and her appetite was still poor but was improving. After being told about the possible cancer, the patient stopped eating or drinking and became weaker and more debilitated. A central line had to be placed due to poor IV access--both peripheral and midlines went bad. She also had hyponatremia which limited TPN being started because her potassium was less than 3 despite aggressive IV potassium replacement. The patient was also stopped taking oral meds. She denied nausea or abdominal pain but refused to eat or drink despite family and staff efforts. She was having confusion likely metabolic encephalopathy from her ongoing hyponatremia and hypokalemia. 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 Her initial biopsy result was indeterminate. I did ask the patient about a feeding tube and she said no. I also discussed a feeding tube with the family. The family also reported that the patient's mother at age 61 with a cancer that was causing electrolyte issues. The patient continued to become more debilitated and started having both urinary and bowel incontinence and would clamp her mouth shut whenever any drink or food were attempted. I had a long discussion with the family about her poor prognosis and the fact that with her refusal to eat or drink and worsening debility and the fact that she already had metastatic spread of cancer that it was unlikely that the patient could get strong enough to finish a workup for the cancer and definitely in her condition could not tolerated any type of treatment for her cancer. They decided on comfort care and the patient passed about 30 hours later. Labs Laboratory Tests 07/07/22 09:34: Sodium Level 132L, Potassium Level 2.8L, Chloride Level 90L, Anion Gap 18H, Blood Urea Nitrogen 3L, Creatinine 0.44L, Glucose Level 119H, Calcium Level 11.1H, Corrected Calcium 12.8H, Total Bilirubin 1.1H, Total Protein 4.3L, Albumin 1.9L 07/07/22 11:10: 07/07/22 15:17: Glucometer 49*L 07/07/22 20:03: 07/08/22 06:30: Glucometer 48*L 07/08/22 06:31: 07/08/22 11:09: Glucometer 113H 07/08/22 15:52: Glucometer 41*L 07/08/22 15:56: Procedures None. Discharge Physical Examination Allergies: Coded Allergies: No Known Drug Allergies (Verified , 04/05/07) Vitals & I&Os Vital Signs Date Time Temp Pulse Resp B/P (MAP) Pulse Ox O2 Delivery O2 Flow Rate FiO2 07/09/22 20:32 Room Air 07/09/22 07:23 0.00 07/08/22 19:10 92 07/08/22 15:49 37.4 101 18 156/74 (101) Discharge Home Medications Reviewed and agree with Discharge Medication list on patient's Discharge Instruction sheet Instructions to Patient/Family Please see electronic discharge instructions given to patient. PIETRO TURK DO Jul 10, 2022 09:26
== END 2022-07-10 03:00 | disposition expired | DRG 435 ==
LOC: EDUNIT# 10:45 → ER 10:47 → 4TH 12:00
PROVIDERS: ADMIT Family Medicine; ATTEND Family Medicine
PROC: 0FB13ZX Excision of Right Lobe Liver, Percutaneous Approach, Diagnostic (ICD-10-PCS; principal; 2022-07-01)
PROC: 02HV33Z Insertion of Infusion Device into Superior Vena Cava, Percutaneous Approach (ICD-10-PCS; 2022-07-04)
DX: C78.7 Secondary malignant neoplasm of liver and intrahepatic bile duct (principal); G93.41 Metabolic encephalopathy; A04.71 Enterocolitis due to Clostridium difficile, recurrent; E22.2 Syndrome of inappropriate secretion of antidiuretic hormone; E46 Unspecified protein-calorie malnutrition; Z68.1 Body mass index [BMI] 19.9 or less, adult; E86.0 Dehydration; Z66 Do not resuscitate; Z51.5 Encounter for palliative care; K59.00 Constipation, unspecified; E86.1 Hypovolemia; E83.52 Hypercalcemia; I10 Essential (primary) hypertension; E78.00 Pure hypercholesterolemia, unspecified; E87.6 Hypokalemia; E83.42 Hypomagnesemia; L04.1 Acute lymphadenitis of trunk; R91.8 Other nonspecific abnormal finding of lung field; E80.6 Other disorders of bilirubin metabolism; D69.6 Thrombocytopenia, unspecified; C80.1 Malignant (primary) neoplasm, unspecified; R32 Unspecified urinary incontinence; R15.9 Full incontinence of feces; E03.9 Hypothyroidism, unspecified; E11.9 Type 2 diabetes mellitus without complications; D64.9 Anemia, unspecified; E87.8 Other disorders of electrolyte and fluid balance, not elsewhere classified; H54.7 Unspecified visual loss; Z79.82 Long term (current) use of aspirin; Z79.84 Long term (current) use of oral hypoglycemic drugs
CPT/HCPCS: 36410; 36415; 70450; 71045; 71260; 74018; 74178; 76705; 76937; 77012; 80048; 80053; 80076; 81000; 82140; 82728; 82947; 83540; 83550; 83735; 84100; 84478; 85007; 85025; 85027; 85610; 85730; 86850; 86900; 86901; 86920; 87324; 87449; 88112; 88173; 94664; 94760; 96360; 99156